=== PATIENT | male | born 1985 | race Caucasian/White ===

== ENCOUNTER 2017-03-24 08:57 | Emergency (ER) | payer BC ==
[2017-03-24] MEDS ORDERED: IBUPROFEN IV 600 MG in SODIUM CHLORIDE 0.9% 250 ML IV ONE (09:18)
[2017-03-24] MEDS ORDERED: ONDANSETRON 4 MG/2 ML VIAL IVP STA (09:18)
[2017-03-24] MEDS ORDERED: SODIUM CHLORIDE 0.9% 1,000 ML IV STA ×2 (09:18→11:43)
--- NOTE | 2017-03-24 09:20 | ED ---
General Adult HPI - General Chief complaint: Shortness of Breath Stated complaint: Flu Time Seen by Provider: 03/24/17 09:08 Source: patient, RN notes reviewed Mode of arrival: ambulatory Limitations: no limitations - History of Present Illness Initial comments: Patient 31-year-old male who presents emergency room today with chief complaint of increased cough congestion over the last month. He states his symptoms started a month ago was diagnosed with pneumonia by chest x-ray was on azithromycin that he finished just 2 days ago. States began feeling better over the weekend but over the last few days symptoms seem to have increased once again. He doesn't take chills, body aches admits to fever today. States he has not taken anything for it yet. Doesn't headache. Patient admits to feeling nauseated no vomiting. Patient denies any other complaints. He denies any past medical history. Patient denies any recent shortness of breath, chest pain, back pain, abdominal pain, vomiting, numbness or tingling, visual changes , or any other complaints. - Related Data Home Medications Medication Instructions Recorded Confirmed Dextroamphetamine/Amphetamine 30 mg PO BID 03/24/17 03/24/17 [Adderall] Allergies Allergy/AdvReac Type Severity Reaction Status Date / Time No Known Allergies Allergy Verified 03/24/17 09:22 Review of Systems ROS Statement: Those systems with pertinent positive or pertinent negative responses have been documented in the HPI. ROS Other: All systems not noted in ROS Statement are negative. Past Medical History Past Medical History: No Reported History History of Any Multi-Drug Resistant Organisms: None Reported Past Surgical History: No Surgical Hx Reported Past Psychological History: ADD/ADHD Smoking Status: Current every day smoker Past Alcohol Use History: None Reported Past Drug Use History: None Reported General Exam - General Exam Comments Initial Comments: General: The patient is awake and alert, in no distress, and does not appear acutely ill. Eye: Pupils are equal, round and reactive to light, extra-ocular movements are intact. No nystagmus. There is normal conjunctiva bilaterally. No signs of icterus. Ears, nose, mouth and throat: There are moist mucous membranes and no oral lesions. Neck: The neck is supple, there is no tenderness or JVD. Cardiovascular: Tachycardic. No murmur, rub or gallop is appreciated. Respiratory: Lungs are clear to auscultation, respirations are non-labored, breath sounds are equal. No wheezes, stridor, rales, or rhonchi. Musculoskeletal: Normal ROM, no tenderness. Strength 5/5. Sensation intact. Pulses equal bilaterally 2+. Neurological: A&O x 3. CN II-XII intact, There are no obvious motor or sensory deficits. Coordination appears grossly intact. Speech is normal. Skin: Skin is warm and dry and no rashes or lesions are noted. Psychiatric: Cooperative, appropriate mood & affect, normal judgment. Limitations: no limitations Course Vital Signs 03/24/17 03/24/17 03/24/17 08:58 10:16 11:07 Temperature 101.2 F H 100.1 F H 100.5 F H Pulse Rate 130 H 129 H Respiratory 16 18 16 Rate Blood Pressure 113/74 126/61 O2 Sat by Pulse 97 96 Oximetry 03/24/17 03/24/17 12:09 13:28 Temperature 99 F 98.9 F Pulse Rate 115 H 106 H Respiratory 18 16 Rate Blood Pressure 110/66 106/64 O2 Sat by Pulse 97 96 Oximetry Medical Decision Making - Medical Decision Making Patient reexamined at this time shows no signs of distress. Resting comfortable. Chest x-rays negative. Patient's last been reviewed. Negative influenza. Patient does admit that he was on antibiotics. Has a new antibiotic since been called to the pharmacy. Case was discussed by attending physician Dr. Davis. RESULTS were discussed with patient. At this time he feels being discharged home. His heart rate much improved after ibuprofen and IV fluids. He was given a dose of Levaquin here in emergency room. States he does not want be admitted will be discharged home advised to obtain his prescription that was prescribed colchicine. Advised to return here to emergency room if symptoms increase worsen. - Lab Data Result diagrams: 03/24/17 09:53 03/24/17 09:53 Lab Results 03/24/17 03/24/17 03/24/17 Range/Units 09:34 09:53 09:53 WBC 5.4 (3.8-10.6) k/uL RBC 4.46 (4.30-5.90) m/uL Hgb 14.1 (13.0-17.5) gm/dL Hct 42.4 (39.0-53.0) % MCV 94.9 (80.0-100.0) fL MCH 31.5 (25.0-35.0) pg MCHC 33.2 (31.0-37.0) g/dL RDW 11.9 (11.5-15.5) % Plt Count 163 (150-450) k/uL Neutrophils % 77 % Lymphocytes % 10 % Monocytes % 11 % Eosinophils % 1 % Basophils % 0 % Neutrophils # 4.1 (1.3-7.7) k/uL Lymphocytes # 0.5 L (1.0-4.8) k/uL Monocytes # 0.6 (0-1.0) k/uL Eosinophils # 0.1 (0-0.7) k/uL Basophils # 0.0 (0-0.2) k/uL Sodium 139 (137-145) mmol/L Potassium 3.6 (3.5-5.1) mmol/L Chloride 102 (98-107) mmol/L Carbon Dioxide 29 (22-30) mmol/L Anion Gap 8 mmol/L BUN 15 (9-20) mg/dL Creatinine 0.90 (0.66-1.25) mg/dL Est GFR (MDRD) Af Amer >60 (>60 ml/min/1.73 sqM) Est GFR (MDRD) Non-Af >60 (>60 ml/min/1.73 sqM) Glucose 91 (74-99) mg/dL Plasma Lactic Acid Walter (0.7-2.0) mmol/L Calcium 8.7 (8.4-10.2) mg/dL Total Bilirubin 0.5 (0.2-1.3) mg/dL AST 26 (17-59) U/L ALT 25 (21-72) U/L Alkaline Phosphatase 55 (38-126) U/L Total Protein 6.3 (6.3-8.2) g/dL Albumin 3.8 (3.5-5.0) g/dL Influenza Type A RNA Not Detected (Not Detectd) Influenza Type B (PCR) Not Detected (Not Detectd) 03/24/17 Range/Units 09:53 WBC (3.8-10.6) k/uL RBC (4.30-5.90) m/uL Hgb (13.0-17.5) gm/dL Hct (39.0-53.0) % MCV (80.0-100.0) fL MCH (25.0-35.0) pg MCHC (31.0-37.0) g/dL RDW (11.5-15.5) % Plt Count (150-450) k/uL Neutrophils % % Lymphocytes % % Monocytes % % Eosinophils % % Basophils % % Neutrophils # (1.3-7.7) k/uL Lymphocytes # (1.0-4.8) k/uL Monocytes # (0-1.0) k/uL Eosinophils # (0-0.7) k/uL Basophils # (0-0.2) k/uL Sodium (137-145) mmol/L Potassium (3.5-5.1) mmol/L Chloride (98-107) mmol/L Carbon Dioxide (22-30) mmol/L Anion Gap mmol/L BUN (9-20) mg/dL Creatinine (0.66-1.25) mg/dL Est GFR (MDRD) Af Amer (>60 ml/min/1.73 sqM) Est GFR (MDRD) Non-Af (>60 ml/min/1.73 sqM) Glucose (74-99) mg/dL Plasma Lactic Acid Walter 0.8 (0.7-2.0) mmol/L Calcium (8.4-10.2) mg/dL Total Bilirubin (0.2-1.3) mg/dL AST (17-59) U/L ALT (21-72) U/L Alkaline Phosphatase (38-126) U/L Total Protein (6.3-8.2) g/dL Albumin (3.5-5.0) g/dL Influenza Type A RNA (Not Detectd) Influenza Type B (PCR) (Not Detectd) Disposition Clinical Impression: Acute bronchitis Disposition: HOME SELF-CARE Condition: Good Instructions: Acute Bronchitis (ED) Additional Instructions: Please use medication as discussed. Please follow-up with family doctor in the next 2 days of symptoms have not improved. Please return to emergency room if the symptoms increase or worsen or for any other concerns. Referrals: Ander Junior MD [Primary Care Provider] - 1-2 days Time of Disposition: 13:42
--- NOTE | 2017-03-24 10:08 | XR ---
EXAMINATION TYPE: XR chest 2V DATE OF EXAM: 03/24/2017 COMPARISON: None HISTORY: 31-year-old male with cough and congestion TECHNIQUE: AP and lateral views FINDINGS: The cardiomediastinal silhouette, aorta, and pulmonary vasculature are within normal limits. Lungs an d pleural spaces are clear. IMPRESSION: No acute cardiopulmonary process.
[2017-03-24 10:15] LABS: Basophils % (A) 0 %; Eosinophils # (A) 0.1 k/uL (0-0.7); Eosinophils % (A) 1 %; HCT 42.4 % (39.0-53.0); HGB 14.1 gm/dL (13.0-17.5); Lymphocytes # (A) 0.5 k/uL (1.0-4.8); Lymphocytes % (A) 10 %; MCH 31.5 pg (25.0-35.0); MCHC 33.2 g/dL (31.0-37.0); MCV 94.9 fL (80.0-100.0); Monocytes # (A) 0.6 k/uL (0-1.0); Monocytes % (A) 11 %; Neutrophils # (A) 4.1 k/uL (1.3-7.7); Neutrophils % (A) 77 %; Platelet Count 163 k/uL (150-450); RBC 4.46 m/uL (4.30-5.90); RDW 11.9 % (11.5-15.5); WBC 5.4 k/uL (3.8-10.6)
[2017-03-24 10:29] LABS: ALT 25 U/L (21-72); AST 26 U/L (17-59); Albumin 3.8 g/dL (3.5-5.0); Alkaline Phosphatase 55 U/L (38-126); Anion Gap 8 mmol/L; Blood Urea Nitrogen 15 mg/dL (9-20); Calcium 8.7 mg/dL (8.4-10.2); Carbon Dioxide 29 mmol/L (22-30); Chloride 102 mmol/L (98-107); Glucose 91 mg/dL (74-99); Potassium 3.6 mmol/L (3.5-5.1); Sodium 139 mmol/L (137-145); Total Bilirubin 0.5 mg/dL (0.2-1.3); Total Protein 6.3 g/dL (6.3-8.2)
[2017-03-24] MEDS ORDERED: LEVOFLOXACIN 500MG-D5W PMX 500 MG in DEXTROSE/WATER 1 100ML.BAG IVPB STA (11:43)
[2017-03-24 13:29] VITALS: BP 106/64; PULSE 106; RESP 16; TEMP 98.9
[2017-03-24] MEDS ORDERED: DEXAMETHASONE SOD PHOSPHATE 10 MG/ML 1 ML VIAL IV STA (13:41)
== END 2017-03-24 14:10 | disposition home or self-care (01) ==
LOC: SUPCPDRO 08:57 → EC 08:57
DX: J20.9 Acute bronchitis, unspecified (principal); F90.9 Attention-deficit hyperactivity disorder, unspecified type; F17.200 Nicotine dependence, unspecified, uncomplicated; Z79.899 Other long term (current) drug therapy
CPT/HCPCS: 99285; 96365 ×2; 96375 ×2; 36415; 80053; 83605; 85025; 87040; 87502; 71046; J1100; J2405; J1956; J1741

== ENCOUNTER 2017-12-01 12:01 | Emergency (ER) | payer BC ==
--- NOTE | 2017-12-01 12:45 | ED ---
Head Injury HPI - General Chief complaint: Head Injury Stated complaint: Head injury Time Seen by Provider: 12/01/17 12:15 Source: patient, RN notes reviewed Mode of arrival: ambulatory Limitations: no limitations - History of Present Illness Initial comments: This a 31-year-old male presents emergency Department chief complaint of headache, head injury. Patient states since Tuesday is changing a tire states that the bar slipped striking him in the left mastoid region. Patient states that continuation of a headache slightly feeling dizzy. Patient was seen by urgent care/PCP and sent emergency department. Patient states he has no focal weakness no difficult in thought process. Denies any nausea vomiting. Patient said no blurred vision. - Related Data Home Medications Medication Instructions Recorded Confirmed Dextroamphetamine/Amphetamine 30 mg PO BID 03/24/17 12/01/17 [Adderall] Acetaminophen [Tylenol] 500 mg PO Q4-6H PRN 12/01/17 12/01/17 Allergies/Adverse reactions: Allergies Allergy/AdvReac Type Severity Reaction Status Date / Time No Known Allergies Allergy Verified 12/01/17 12:30 Review of Systems ROS Statement: Those systems with pertinent positive or pertinent negative responses have been documented in the HPI. ROS Other: All systems not noted in ROS Statement are negative. Past Medical History Past Medical History: No Reported History History of Any Multi-Drug Resistant Organisms: None Reported Past Surgical History: No Surgical Hx Reported Past Psychological History: ADD/ADHD Smoking Status: Current every day smoker Past Alcohol Use History: None Reported Past Drug Use History: None Reported General Exam Limitations: no limitations General appearance: alert, in no apparent distress Head exam: Present: atraumatic, normocephalic, normal inspection Eye exam: Present: normal appearance, PERRL, EOMI. Absent: scleral icterus, conjunctival injection, periorbital swelling ENT exam: Present: normal exam, normal oropharynx, mucous membranes moist, TM's normal bilaterally, normal external ear exam, other (Minimal mastoid tenderness on the left) Neck exam: Present: normal inspection, full ROM. Absent: tenderness, meningismus, lymphadenopathy Respiratory exam: Present: normal lung sounds bilaterally. Absent: respiratory distress, wheezes, rales, rhonchi, stridor Cardiovascular Exam: Present: regular rate, normal rhythm, normal heart sounds. Absent: systolic murmur, diastolic murmur, rubs, gallop, clicks Neurological exam: Present: alert, oriented X3, CN II-XII intact, reflexes normal, other (Finger to nose intact bilaterally without over shooting, normal Romberg, GCS of 15). Absent: motor sensory deficit Skin exam: Present: warm, dry, intact, normal color. Absent: rash Medical Decision Making - Medical Decision Making 31-year-old male presents emergency Department for a CAT scan after head injury. Head injury happened 4 days ago. Patient has continuation headache CT was obtained did not reveal any skull fracture, no intracranial hemorrhage. Patient does have concussion symptoms. Patient advised that he needs to follow up for repeat check and to be cleared for physical activity and work. Disposition Clinical Impression: Concussion Disposition: HOME SELF-CARE Condition: Stable Instructions: Concussion (ED) Additional Instructions: Please return to the Emergency Department if symptoms worsen or any other concerns. Is patient prescribed a controlled substance at d/c from ED?: No Referrals: Ander Junior MD [Primary Care Provider] - 1-2 days Time of Disposition: 13:10
--- NOTE | 2017-12-01 12:45 | CT ---
EXAMINATION TYPE: CT brain wo con DATE OF EXAM: 12/01/2017 COMPARISON: NONE HISTORY: pt hit head with metal pipe, unsure of LOC. CT DLP: 994.10 mGycm. Automated Exposure Control for Dose Reduction was Utilized. TECHNIQUE: CT scan of the head is performed without contrast. FINDINGS: There is no acute intracranial hemorrhage, mass effect, or midline shift identified. No suspicious extra-axial fluid collection. The ventricles and sulci are within normal limits in size. The globes are intact and the visualized sinuses are clear. There are numerous calcified fragments wi thin the scalp predominating in the frontal region. IMPRESSION: No acute intracranial hemorrhage, mass effect, or midline shift is seen.
[2017-12-01 13:17] VITALS: BP 133/85; PULSE 98; RESP 16; TEMP 97.9
== END 2017-12-01 13:50 | disposition home or self-care (01) ==
LOC: EC 12:01
DX: S06.0X0A Concussion without loss of consciousness, initial encounter (principal); F90.9 Attention-deficit hyperactivity disorder, unspecified type; R40.2412 Glasgow coma scale score 13-15, at arrival to emergency department; F17.200 Nicotine dependence, unspecified, uncomplicated; Z79.899 Other long term (current) drug therapy; W22.8XXA Striking against or struck by other objects, initial encounter; Y93.89 Activity, other specified
CPT/HCPCS: 70450; 99283

== ENCOUNTER 2019-07-17 01:53 | Emergency (ER) | payer BC ==
[2019-07-17 02:05] VITALS: BP 132/89; PULSE 110; RESP 20; TEMP 98.4
--- NOTE | 2019-07-17 02:56 | XR ---
EXAMINATION TYPE: XR ankle complete RT DATE OF EXAM: 07/17/2019 COMPARISON: NONE HISTORY: Pain. TECHNIQUE: 3 views FINDINGS: There is nondisplaced fracture of the body of the calcaneus. Subtalar joint is anatomic. An kle mortise is anatomic. Talonavicular joint appears normal. IMPRESSION: Nondisplaced calcaneus fracture.
--- NOTE | 2019-07-17 03:18 | ED ---
Lower Extremity Injury HPI - General Chief Complaint: Extremity Injury, Lower Stated Complaint: Rt Ankle Injury Time Seen by Provider: 07/17/19 02:14 Source: patient, family, RN notes reviewed, old records reviewed Mode of arrival: wheelchair Limitations: no limitations - History of Present Illness Initial Comments: This is a 33-year-old male presents today for evaluation of significant lower extremity pain patient has severe right ankle pain. Jumped off a deck today causing ankle pain does admit intoxication no other injury. Able to bear weight denying any pain hip pain or back pain. MD Complaint: ankle injury (Right) -: hour(s) Injury: Ankle: Right Type of Injury: blunt Place: home, street/outdoors Severity: severe Severity scale (1-10): 10 Improves With: nothing Worsens With: weight bearing Context: direct blow Associated Symptoms: swelling, unable to bear weight, able to partially bear weight - Related Data Home Medications Medication Instructions Recorded Confirmed Dextroamphetamine/Amphetamine 30 mg PO BID 03/24/17 12/29/17 [Adderall] Allergies Allergy/AdvReac Type Severity Reaction Status Date / Time No Known Allergies Allergy Verified 07/17/19 02:05 Review of Systems ROS Statement: Those systems with pertinent positive or pertinent negative responses have been documented in the HPI. ROS Other: All systems not noted in ROS Statement are negative. Past Medical History Past Medical History: No Reported History Additional Past Medical History / Comment(s): 12-29-17 pt wants both flu and pne vaccine this admit. concussion few weeks ago( while changing a tire- accidently was hit in head with a metal pipe) ,add/adhd,scoliosis."heartburn", shingles 2007 History of Any Multi-Drug Resistant Organisms: None Reported Past Surgical History: Hernia Repair Additional Past Surgical History / Comment(s): rt inguinal hernia repair, rt hand repair after a drill went thru it. Past Anesthesia/Blood Transfusion Reactions: Motion Sickness Additional Past Anesthesia/Blood Transfusion Reaction / Comment(s): past "sea sickness" Past Psychological History: ADD/ADHD Smoking Status: Current every day smoker Past Alcohol Use History: None Reported, Heavy Past Drug Use History: None Reported - Past Family History Father Family Medical History: COPD, Coronary Artery Disease (CAD), Diabetes Mellitus Mother Family Medical History: Hypertension, Sleep Apnea/CPAP/BIPAP Additional Family Medical History / Comment(s): osteoporosis, fatty liver General Exam Limitations: no limitations General appearance: alert, in no apparent distress Head exam: Present: atraumatic, normocephalic, normal inspection Eye exam: Present: normal appearance, PERRL, EOMI. Absent: scleral icterus, conjunctival injection, periorbital swelling ENT exam: Present: normal exam, mucous membranes moist Neck exam: Present: normal inspection. Absent: tenderness, meningismus, lymphadenopathy Respiratory exam: Present: normal lung sounds bilaterally. Absent: respiratory distress, wheezes, rales, rhonchi, stridor Cardiovascular Exam: Present: normal rhythm, tachycardia, normal heart sounds. Absent: systolic murmur, diastolic murmur, rubs, gallop, clicks GI/Abdominal exam: Present: soft, normal bowel sounds. Absent: distended, tenderness, guarding, rebound, rigid Extremities exam: Present: normal inspection, full ROM, tenderness (6 significant right lower extremity tenderness to palpation no knee pain no hip pain), normal capillary refill. Absent: pedal edema, joint swelling, calf tenderness Back exam: Present: normal inspection Neurological exam: Present: alert, oriented X3, CN II-XII intact Psychiatric exam: Present: normal affect, normal mood Skin exam: Present: warm, dry, intact, normal color. Absent: rash Course Vital Signs 07/17/19 02:00 Temperature 98.4 F Pulse Rate 110 H Respiratory 20 Rate Blood Pressure 132/89 O2 Sat by Pulse 97 Oximetry - Reevaluation(s) Reevaluation #1: 07/17/19 03:16 Medical records reviewed Reevaluation #2: 07/17/19 03:16 Pain is improved Procedures - Orthopedic Splinting/Casting Injury #1 Side: right Lower Extremity Injury Location: ankle Lower Extremity Immobilizer: posterior splint, stirrup splint Medical Decision Making - Medical Decision Making 33 male status post fall, patient's fall was jumping off of a doctor on the ground landing on right foot right leg does have severe right foot and ankle pain. Patient has fractured calcaneus ankle splinted patient can be discharged home encouraged no weightbearing - Radiology Data Radiology results: report reviewed (X-ray right ankle shows nondisplaced calcaneus fracture), image reviewed Disposition Clinical Impression: Right calcaneal fracture, Fall Disposition: HOME SELF-CARE Condition: Good Instructions (If sedation given, give patient instructions): Calcaneal Fracture (ED) Is patient prescribed a controlled substance at d/c from ED?: No Referrals: Barry Mejias MD [Medical Doctor] - 1-2 days
== END 2019-07-17 03:33 | disposition home or self-care (01) ==
LOC: EC 01:53
DX: S92.014A Nondisplaced fracture of body of right calcaneus, initial encounter for closed fracture (principal); R00.0 Tachycardia, unspecified; F90.9 Attention-deficit hyperactivity disorder, unspecified type; F17.200 Nicotine dependence, unspecified, uncomplicated; Z79.899 Other long term (current) drug therapy; W13.8XXA Fall from, out of or through other building or structure, initial encounter; Y93.39 Activity, other involving climbing, rappelling and jumping off; Y92.009 Unspecified place in unspecified non-institutional (private) residence as the place of occurrence of the external cause
CPT/HCPCS: 29515; 99284

== ENCOUNTER → 2019-07-19 | Outpatient (CLI) | payer OTHER ==
--- NOTE | 2019-07-19 10:56 | CT ---
EXAMINATION TYPE: CT ankle RT wo con DATE OF EXAM: 07/19/2019 COMPARISON: Radiograph 07/17/2019 HISTORY: 33-year-old male right foot pain, calcaneus fracture TECHNIQUE: Contiguous axial scanning of the right ankle without IV contrast. Coronal and sagittal rec onstructions performed. 3-D reconstructions generated on a dedicated independent workstation. CT DLP: 204.4 mGycm Automated exposure control for dose reduction was used. FINDINGS: Marked lateral sided soft tissue swelling. Tiny type I accessory navicular. Aside from the known calcaneal fractures, no additional fractures identified. The calcaneal fracture is comminuted extending from the anterior aspect to the posterior aspect. Ther e is fracture extension into the region of the sinus tarsi, posterior subtalar joint, anterior subtal ar joint, and a vertical fracture oriented from front to back at the lateral margin of the middle sub talar joint. No significant incongruence along the articular surfaces. Laterally at the level of the calcaneal body, there is impaction of the cortex by up to 7 mm. IMPRESSION: 1. COMMINUTED FRACTURE EXTENDING THROUGHOUT THE CALCANEUS. LATERALLY AT THE CALCANEAL BODY, THERE IS IMPACTION OF THE CORTEX BY UP TO 7 MM. 2. INTRA-ARTICULAR EXTENSION OF FRACTURES INTO THE ANTERIOR AND POSTERIOR SUBTALAR JOINTS WITHOUT ANY SIGNIFICANT ARTICULAR SURFACE INCONGRUITY. FRACTURE ALSO EXTENDS ALONG THE LATERAL MARGIN OF THE MID DLE SUBTALAR JOINT IN THE SAGITTAL PLANE.
== END | disposition home or self-care (01) ==
LOC: RADCTMAIN 10:02
PROVIDERS: ATTEND Orthopaedic Surgery
DX: S92.061A Displaced intraarticular fracture of right calcaneus, initial encounter for closed fracture (principal)

== ENCOUNTER 2021-07-13 17:19 | Inpatient (IN) | payer BC ==
[2021-07-13] MEDS ORDERED: SODIUM CHLORIDE 0.9% 1,000 ML IV SCH (18:15)
--- NOTE | 2021-07-13 18:29 | ED ---
General Adult HPI - General Chief complaint: Upper Respiratory Infection Stated complaint: Cough and dyspnea Time Seen by Provider: 07/13/21 18:09 Source: patient, RN notes reviewed Mode of arrival: ambulatory Limitations: no limitations - History of Present Illness Initial comments: Patient is a pleasant 35-year-old male presenting to the emergency Department with cough. Onset of symptoms was around a month ago. Patient does feel a little bit short of breath. Patient does have a large amount of yellow sputum. Patient did have a course of azithromycin without much improvement of symptoms. Patient had some loose stools from the azithromycin however that resolved. Patient did have some hematuria and passed the kidney stone last week. Patient is no longer having hematuria. No nasal congestion. No fevers. - Related Data Home Medications Medication Instructions Recorded Confirmed Dextroamphetamine/Amphetamine 30 mg PO BID 03/24/17 12/29/17 [Adderall] Allergies Allergy/AdvReac Type Severity Reaction Status Date / Time No Known Allergies Allergy Verified 07/13/21 17:57 Review of Systems ROS Statement: Those systems with pertinent positive or pertinent negative responses have been documented in the HPI. ROS Other: All systems not noted in ROS Statement are negative. Constitutional: Denies: fever, chills Eyes: Denies: eye pain ENT: Denies: ear pain Respiratory: Reports: as per HPI, cough, dyspnea Cardiovascular: Denies: chest pain Endocrine: Denies: fatigue Gastrointestinal: Reports: as per HPI. Denies: abdominal pain Genitourinary: Reports: as per HPI Musculoskeletal: Denies: back pain Skin: Denies: rash Neurological: Denies: weakness Past Medical History Past Medical History: No Reported History Additional Past Medical History / Comment(s): 12-29-17 pt wants both flu and pne vaccine this admit. concussion few weeks ago( while changing a tire- accidently was hit in head with a metal pipe) ,add/adhd,scoliosis."heartburn", shingles 2007 History of Any Multi-Drug Resistant Organisms: None Reported Past Surgical History: Hernia Repair Additional Past Surgical History / Comment(s): rt inguinal hernia repair, rt hand repair after a drill went thru it. Past Anesthesia/Blood Transfusion Reactions: Motion Sickness Additional Past Anesthesia/Blood Transfusion Reaction / Comment(s): past "sea sickness" Past Psychological History: ADD/ADHD Smoking Status: Never smoker Past Alcohol Use History: None Reported Past Drug Use History: None Reported - Past Family History Father Family Medical History: COPD, Coronary Artery Disease (CAD), Diabetes Mellitus Mother Family Medical History: Hypertension, Sleep Apnea/CPAP/BIPAP Additional Family Medical History / Comment(s): osteoporosis, fatty liver General Exam Limitations: no limitations General appearance: alert, in no apparent distress Head exam: Present: normocephalic Eye exam: Present: normal appearance Neck exam: Present: normal inspection Respiratory exam: Present: rhonchi Cardiovascular Exam: Present: tachycardia GI/Abdominal exam: Present: soft. Absent: tenderness Extremities exam: Present: normal inspection. Absent: pedal edema, calf tenderness Neurological exam: Present: alert Psychiatric exam: Present: normal affect, normal mood Skin exam: Present: normal color Course Vital Signs 07/13/21 17:53 Pulse Rate 132 H Respiratory 20 Rate Blood Pressure 117/85 O2 Sat by Pulse 97 Oximetry EKG Findings - EKG Comments: EKG Findings:: Sinus tachycardia 127. MN 153. QRS 92. QT 304. QTC 379. Normal axis. Normal QRS. Nonspecific ST-T. Medical Decision Making - Medical Decision Making Patient reevaluated and updated. Case discussed with Dr. Crump, who will admit covering Dr. Corado. He agrees with [facility]. - Lab Data Result diagrams: 07/13/21 18:28 07/13/21 18:28 Lab Results 07/13/21 07/13/21 07/13/21 Range/Units 18:28 18:28 18:28 WBC 8.1 (3.8-10.6) k/uL RBC 4.37 (4.30-5.90) m/uL Hgb 14.2 (13.0-17.5) gm/dL Hct 42.3 (39.0-53.0) % MCV 96.7 (80.0-100.0) fL MCH 32.5 (25.0-35.0) pg MCHC 33.7 (31.0-37.0) g/dL RDW 12.1 (11.5-15.5) % Plt Count 405 (150-450) k/uL MPV 8.0 Neutrophils % 65 % Lymphocytes % 25 % Monocytes % 6 % Eosinophils % 2 % Basophils % 1 % Neutrophils # 5.2 (1.3-7.7) k/uL Lymphocytes # 2.0 (1.0-4.8) k/uL Monocytes # 0.5 (0-1.0) k/uL Eosinophils # 0.2 (0-0.7) k/uL Basophils # 0.1 (0-0.2) k/uL PT 11.8 (9.0-12.0) sec INR 1.1 (<1.2) APTT 26.4 (22.0-30.0) sec Sodium (137-145) mmol/L Potassium (3.5-5.1) mmol/L Chloride (98-107) mmol/L Carbon Dioxide (22-30) mmol/L Anion Gap mmol/L BUN (9-20) mg/dL Creatinine (0.66-1.25) mg/dL Est GFR (CKD-EPI)AfAm (>60 ml/min/1.73 sqM) Est GFR (CKD-EPI)NonAf (>60 ml/min/1.73 sqM) Glucose (74-99) mg/dL Plasma Lactic Acid Walter (0.7-2.0) mmol/L Calcium (8.4-10.2) mg/dL Total Bilirubin (0.2-1.3) mg/dL AST (17-59) U/L ALT (4-49) U/L Alkaline Phosphatase (38-126) U/L Total Protein (6.3-8.2) g/dL Albumin (3.5-5.0) g/dL Urine Color Yellow Urine Appearance Clear (Clear) Urine pH 5.5 (5.0-8.0) Ur Specific [place] 1.031 (1.001-1.035) Urine Protein 1+ H (Negative) Urine Glucose (UA) Negative (Negative) Urine Ketones 2+ H (Negative) Urine Blood Negative (Negative) Urine Nitrite Negative (Negative) Urine Bilirubin Negative (Negative) Urine Urobilinogen <2.0 (<2.0) mg/dL Ur Leukocyte Esterase Trace H (Negative) Urine RBC 6 H (0-5) /hpf Urine WBC 4 (0-5) /hpf Ur Squamous Epith Cells <1 (0-4) /hpf Hyaline Casts 6 H (0-2) /lpf Urine Mucus Many H (None) /hpf Coronavirus (PCR) (Not Detectd) Influenza Type A RNA (Not Detectd) Influenza Type B (PCR) (Not Detectd) 07/13/21 07/13/21 07/13/21 Range/Units 18:28 18:28 18:28 WBC (3.8-10.6) k/uL RBC (4.30-5.90) m/uL Hgb (13.0-17.5) gm/dL Hct (39.0-53.0) % MCV (80.0-100.0) fL MCH (25.0-35.0) pg MCHC (31.0-37.0) g/dL RDW (11.5-15.5) % Plt Count (150-450) k/uL MPV Neutrophils % % Lymphocytes % % Monocytes % % Eosinophils % % Basophils % % Neutrophils # (1.3-7.7) k/uL Lymphocytes # (1.0-4.8) k/uL Monocytes # (0-1.0) k/uL Eosinophils # (0-0.7) k/uL Basophils # (0-0.2) k/uL PT (9.0-12.0) sec INR (<1.2) APTT (22.0-30.0) sec Sodium 136 L (137-145) mmol/L Potassium 4.0 (3.5-5.1) mmol/L Chloride 103 (98-107) mmol/L Carbon Dioxide 24 (22-30) mmol/L Anion Gap 9 mmol/L BUN 13 (9-20) mg/dL Creatinine 0.91 (0.66-1.25) mg/dL Est GFR (CKD-EPI)AfAm >90 (>60 ml/min/1.73 sqM) Est GFR (CKD-EPI)NonAf >90 (>60 ml/min/1.73 sqM) Glucose 91 (74-99) mg/dL Plasma Lactic Acid Walter 1.5 (0.7-2.0) mmol/L Calcium 8.5 (8.4-10.2) mg/dL Total Bilirubin 0.8 (0.2-1.3) mg/dL AST 19 (17-59) U/L ALT 14 (4-49) U/L Alkaline Phosphatase 76 (38-126) U/L Total Protein 6.5 (6.3-8.2) g/dL Albumin 3.7 (3.5-5.0) g/dL Urine Color Urine Appearance (Clear) Urine pH (5.0-8.0) Ur Specific [place] (1.001-1.035) Urine Protein (Negative) Urine Glucose (UA) (Negative) Urine Ketones (Negative) Urine Blood (Negative) Urine Nitrite (Negative) Urine Bilirubin (Negative) Urine Urobilinogen (<2.0) mg/dL Ur Leukocyte Esterase (Negative) Urine RBC (0-5) /hpf Urine WBC (0-5) /hpf Ur Squamous Epith Cells (0-4) /hpf Hyaline Casts (0-2) /lpf Urine Mucus (None) /hpf Coronavirus (PCR) (Not Detectd) Influenza Type A RNA Not Detected (Not Detectd) Influenza Type B (PCR) Not Detected (Not Detectd) 07/13/21 Range/Units 18:28 WBC (3.8-10.6) k/uL RBC (4.30-5.90) m/uL Hgb (13.0-17.5) gm/dL Hct (39.0-53.0) % MCV (80.0-100.0) fL MCH (25.0-35.0) pg MCHC (31.0-37.0) g/dL RDW (11.5-15.5) % Plt Count (150-450) k/uL MPV Neutrophils % % Lymphocytes % % Monocytes % % Eosinophils % % Basophils % % Neutrophils # (1.3-7.7) k/uL Lymphocytes # (1.0-4.8) k/uL Monocytes # (0-1.0) k/uL Eosinophils # (0-0.7) k/uL Basophils # (0-0.2) k/uL PT (9.0-12.0) sec INR (<1.2) APTT (22.0-30.0) sec Sodium (137-145) mmol/L Potassium (3.5-5.1) mmol/L Chloride (98-107) mmol/L Carbon Dioxide (22-30) mmol/L Anion Gap mmol/L BUN (9-20) mg/dL Creatinine (0.66-1.25) mg/dL Est GFR (CKD-EPI)AfAm (>60 ml/min/1.73 sqM) Est GFR (CKD-EPI)NonAf (>60 ml/min/1.73 sqM) Glucose (74-99) mg/dL Plasma Lactic Acid Walter (0.7-2.0) mmol/L Calcium (8.4-10.2) mg/dL Total Bilirubin (0.2-1.3) mg/dL AST (17-59) U/L ALT (4-49) U/L Alkaline Phosphatase (38-126) U/L Total Protein (6.3-8.2) g/dL Albumin (3.5-5.0) g/dL Urine Color Urine Appearance (Clear) Urine pH (5.0-8.0) Ur Specific [place] (1.001-1.035) Urine Protein (Negative) Urine Glucose (UA) (Negative) Urine Ketones (Negative) Urine Blood (Negative) Urine Nitrite (Negative) Urine Bilirubin (Negative) Urine Urobilinogen (<2.0) mg/dL Ur Leukocyte Esterase (Negative) Urine RBC (0-5) /hpf Urine WBC (0-5) /hpf Ur Squamous Epith Cells (0-4) /hpf Hyaline Casts (0-2) /lpf Urine Mucus (None) /hpf Coronavirus (PCR) Not Detected (Not Detectd) Influenza Type A RNA (Not Detectd) Influenza Type B (PCR) (Not Detectd) - Radiology Data Radiology results: image reviewed (Chest x-ray shows bilateral infiltrates. Radiologist has concerns for edema.) Disposition Clinical Impression: Pneumonia, Tachycardia Disposition: ADMITTED IP TO THIS HOSP Is patient prescribed a controlled substance at d/c from ED?: No Referrals: Saskia Singh MD [Primary Care Provider] - 1-2 days Time of Disposition: 19:41
[2021-07-13 18:42] LABS: Basophils # (A) 0.1 k/uL (0-0.2); Basophils % (A) 1 %; Eosinophils # (A) 0.2 k/uL (0-0.7); Eosinophils % (A) 2 %; HCT 42.3 % (39.0-53.0); HGB 14.2 gm/dL (13.0-17.5); Lymphocytes % (A) 25 %; MCH 32.5 pg (25.0-35.0); MCHC 33.7 g/dL (31.0-37.0); MCV 96.7 fL (80.0-100.0); Monocytes # (A) 0.5 k/uL (0-1.0); Monocytes % (A) 6 %; Neutrophils # (A) 5.2 k/uL (1.3-7.7); Neutrophils % (A) 65 %; Platelet Count 405 k/uL (150-450); RBC 4.37 m/uL (4.30-5.90); RDW 12.1 % (11.5-15.5); WBC 8.1 k/uL (3.8-10.6)
[2021-07-13 18:50] LABS: INR 1.1 (<1.2); Partial Thromboplastin Time 26.4 sec (22.0-30.0); Prothrombin Time 11.8 sec (9.0-12.0)
[2021-07-13 18:51] LABS: ALT 14 U/L (4-49); AST 19 U/L (17-59); African American GFR (CKD) >90 (>60 ml/min/1.73 sqM); Albumin 3.7 g/dL (3.5-5.0); Alkaline Phosphatase 76 U/L (38-126); Anion Gap 9 mmol/L; Appearance,Urine Clear (Clear); Bilirubin,Urine Negative (Negative); Blood Urea Nitrogen 13 mg/dL (9-20); Blood,Urine Negative (Negative); Calcium 8.5 mg/dL (8.4-10.2); Carbon Dioxide 24 mmol/L (22-30); Chloride 103 mmol/L (98-107); Color,Urine Yellow; Glucose 91 mg/dL (74-99); Glucose,Urine (UA) Negative (Negative); Hyaline Casts,Urine 6 /lpf (0-2); Ketones,Urine 2+ (Negative); Leukocyte Esterase,Urine Trace (Negative); Mucus,Urine Many /hpf; Nitrite,Urine Negative (Negative); Non-African American GFR(CKD) >90 (>60 ml/min/1.73 sqM); PH, Urine 5.5 (5.0-8.0); Protein,Urine 1+ (Negative); RBC,Urine 6 /hpf (0-5); Sodium 136 mmol/L (137-145); Specific Gravity,Urine 1.031 (1.001-1.035); Squamous Epithelial Cell,Urine <1 /hpf (0-4); Total Bilirubin 0.8 mg/dL (0.2-1.3); Total Protein 6.5 g/dL (6.3-8.2); Urobilinogen,Urine <2.0 mg/dL (<2.0); WBC,Urine 4 /hpf (0-5)
--- NOTE | 2021-07-13 19:17 | XR ---
EXAMINATION TYPE: XR chest 2V DATE OF EXAM: 07/13/2021 COMPARISON: 12/29/2017 HISTORY: Chest pain TECHNIQUE: 2 views FINDINGS: There is bilateral pulmonary airspace edema. Heart is enlarged. No pleural effusion. Bony t horax is intact. IMPRESSION: There is pulmonary edema which is new compared to old exam. This could be developing RDS.
[2021-07-13] MEDS ORDERED: IPRATROPIUM-ALBUTEROL 3 ML NEB INHALATION PRN (19:43)
[2021-07-13] MEDS ORDERED: PNEUMONIA PROTOCOL UTILIZED 1 EACH MISC PO PRN (19:43)
[2021-07-13] MEDS ORDERED: LEVOFLOXACIN 750MG-D5W PMX 750 MG in DEXTROSE/WATER 1 150ML.BAG IVPB STA (19:43)
[2021-07-13] MEDS ORDERED: FUROSEMIDE 10 MG/ML 4 ML VIAL IV STA (19:55)
[2021-07-13 21:23] LABS: Amphetamine Screen,Urine Detected (NotDetected); Barbiturate Screen,Urine Not Detected (NotDetected); Benzodiazepines Screen,Urine Not Detected (NotDetected); Cocaine Screen,Urine Not Detected (NotDetected); Methadone Screen, Urine Not Detected (NotDetected); Opiate Screen,Urine Not Detected (NotDetected); Oxycodone Screen, Urine Not Detected (NotDetected); Phencyclidine Screen,Urine Not Detected (NotDetected); Tricyclic Antidepressant,Urine Not Detected (NotDetected); Urn Cannabinoid Scrn Not Detected (NotDetected)
[2021-07-13] MEDS: IPRATROPIUM-ALBUTEROL 3 ML NEB INHALATION SCH (22:32)
--- NOTE | 2021-07-13 22:42 | P.HPIM ---
History of Present Illness H&P Date: 07/13/21 Chief Complaint: Dyspnea 35-year-old man with medical history of ADHD presented for dyspnea. Patient says that starting 3 weeks ago he started to develop dyspnea on exertion. He went to his primary care provider who prescribed him azithromycin. Patient says he started taking azithromycin for couple days, but did not have any improvements or return to his primary care provider who then prescribed albuterol when necessary. Unfortunately, he did not have any improvement with this medication either. Shortly thereafter, he developed hematuria which prompted her return to his primary care provider. Patient ultimately ended up passing a kidney stone. His primary care provider replaced him on azithromycin, however, he still did not improve. He now presents to the emergency room complaining of ongoing dyspnea on exertion as well as at rest and overall feeling of malaise. He denies fevers, chills, nausea, vomiting, chest pain, palpitations, syncopal, presyncope, cough, abdominal pain, constipation, diarrhea, dysuria, dyschezia, number/weakness of extremities. In the emergency room, patient was afebrile, 124/68, 98% on room air, heart rate was elevated at 132 in sinus rhythm. CBC, chemistries, LFTs are unremarkable. BNP was elevated at 2360. UA was significant for 1+ protein, 2+ glucose, trace leukocyte esterase, 6 red blood cells, 4 white blood cells, 6 hyaline casts. Urine tox screen was negative except for amphetamine, which she is prescribed fo r ADHD. Covid, influenza A/B were all negative. EKG shows sinus tachycardia without ischemic changes. Chest x-ray demonstrates pulmonary edema. All Systems reviewed and pertinent positives and negatives noted in HPI, all other symptoms are negative Gen: awake, alert HEENT: normocephalic, atraumatic, good hearing acuity, moist mucous membranes Resp: good air exchange, breathing comfortably with no accessory muscle use, clear to auscultation bilaterally CVS: good distal perfusion x 4, regular rhythm, tachycardic, no murmurs GI: soft, NTTP, ND : no SPT, no CVAT, griffith catheter not present MSK: no pitting edema, no clubbing Neuro: non-focal, moving all extremities Psych: cooperative, euthymic mood Labs and imaging reviewed as above Assessment/plan: Acute congestive heart failure, unknown ejection fraction Acute hypoxemic respiratory failure -Admit to inpatient, telemetry -Cardiology consult -Echocardiogram -Lasix 40 mg IV daily -Strict ins and outs, daily weights -Patient is prophylactically on Levaquin ADHD -Hold patient's home medication Patient is full code DVT prophylaxis with Lovenox daily Past Medical History Past Medical History: No Reported History Additional Past Medical History / Comment(s): 12-29-17 pt wants both flu and pne vaccine this admit. concussion few weeks ago( while changing a tire-a ccidently was hit in head with a metal pipe) ,add/adhd,scoliosis."heartburn", shingles 2007 History of Any Multi-Drug Resistant Organisms: None Reported Past Surgical History: Hernia Repair Additional Past Surgical History / Comment(s): rt inguinal hernia repair, rt hand repair after a drill went thru it. Past Anesthesia/Blood Transfusion Reactions: Motion Sickness Additional Past Anesthesia/Blood Transfusion Reaction / Comment(s): past "sea sickness" Past Psychological History: ADD/ADHD Smoking Status: Former smoker Past Alcohol Use History: None Reported Past Drug Use History: None Reported Additional Drug Use History / Comment(s): occ use - Past Family History Father Family Medical History: COPD, Coronary Artery Disease (CAD), Diabetes Mellitus Mother Family Medical History: Hypertension, Sleep Apnea/CPAP/BIPAP Additional Family Medical History / Comment(s): osteoporosis, fatty liver Medications and Allergies Home Medications Medication Instructions Recorded Confirmed Type Dextroamphetamine/Amphetamine 30 mg PO BID 03/24/17 07/13/21 History [Adderall] Albuterol Sulfate [Albuterol 2 puff PO RT-Q6H PRN 07/13/21 07/13/21 History Sulfate Hfa] Allergies Allergy/AdvReac Type Severity Reaction Status Date / Time No Known Allergies Allergy Verified 07/13/21 19:51 Physical Exam Osteopathic Statement: *. No significant issues noted on an osteopathic structural exam other than those noted in the History and Physical/Consult. Vitals: Vital Signs Temp Pulse Pulse Resp BP BP Pulse Ox 07/13/21 22:00 97.7 F 129 H 14 108/77 98 07/13/21 21:06 125 H 07/13/21 21:01 133 H 07/13/21 20:33 132 H 22 124/68 98 07/13/21 20:00 129 H 07/13/21 17:53 132 H 20 117/85 97 Intake and Output 07/13/21 07/13/21 07/13/21 06:59 14:59 22:59 Other: Voiding Method Toilet Urinal Weight 75.75 kg Results CBC & Chem 7: 07/13/21 18:28 07/13/21 18:28 Labs: Abnormal Lab Results - Last 24 Hours (Table) 07/13/21 07/13/21 07/13/21 Range/Units 18:28 18:28 20:56 Sodium 136 L (137-145) mmol/L Urine Protein 1+ H (Negative) Urine Ketones 2+ H (Negative) Ur Leukocyte Esterase Trace H (Negative) Urine RBC 6 H (0-5) /hpf Hyaline Casts 6 H (0-2) /lpf Urine Mucus Many H (None) /hpf Ur Amphetamines Screen Detected H (NotDetected) Thrombosis Risk Factor Assmnt - Choose All That Apply Each Factor Represents 1 point: Obesity (BMI >25), Serious lung disease incl. pneumonia (< 1month) Thrombosis Risk Factor Assessment Total Risk Factor Score: 2 Thrombosis Risk Factor Assessment Level: Low Risk
[2021-07-14] MEDS: ENOXAPARIN 40 MG/0.4 ML SYRINGE SQ SCH (08:17)
[2021-07-14] MEDS: FUROSEMIDE 10 MG/ML 4 ML VIAL IV SCH (08:17)
--- NOTE | 2021-07-14 08:17 | XR ---
EXAMINATION TYPE: XR chest 2V DATE OF EXAM: 07/14/2021 COMPARISON: Chest x-ray dated 07/13/2021 HISTORY: Pneumonia TECHNIQUE: Frontal and lateral views of the chest are obtained. FINDINGS: Bilateral airspace disease is present predominantly in a central distribution. No evident pneumothorax or sizable effusion. Heart is upper limit of normal. There are overlying leads. There is a spinal curvature. IMPRESSION: Correlate for congestive heart failure and pulmonary edema, pneumonia not excluded.
[2021-07-14] MEDS: IPRATROPIUM-ALBUTEROL 3 ML NEB INHALATION SCH ×4 (08:50→21:13)
[2021-07-14 09:57] LABS: Basophils # (A) 0.1 k/uL (0-0.2); Basophils % (A) 1 %; Eosinophils # (A) 0.3 k/uL (0-0.7); Eosinophils % (A) 4 %; HCT 46.4 % (39.0-53.0); HGB 15.1 gm/dL (13.0-17.5); Lymphocytes # (A) 1.7 k/uL (1.0-4.8); Lymphocytes % (A) 28 %; MCH 31.8 pg (25.0-35.0); MCHC 32.5 g/dL (31.0-37.0); MCV 97.9 fL (80.0-100.0); Mean Platelet Volume 8.9; Monocytes # (A) 0.4 k/uL (0-1.0); Monocytes % (A) 7 %; Neutrophils # (A) 3.8 k/uL (1.3-7.7); Neutrophils % (A) 60 %; Platelet Count 391 k/uL (150-450); RBC 4.74 m/uL (4.30-5.90); RDW 11.5 % (11.5-15.5); WBC 6.3 k/uL (3.8-10.6)
[2021-07-14 10:14] LABS: African American GFR (CKD) >90 (>60 ml/min/1.73 sqM); Anion Gap 7 mmol/L; Blood Urea Nitrogen 13 mg/dL (9-20); Calcium 8.8 mg/dL (8.4-10.2); Carbon Dioxide 29 mmol/L (22-30); Chloride 102 mmol/L (98-107); Glucose 136 mg/dL (74-99); Magnesium 1.8 mg/dL (1.6-2.3); Non-African American GFR(CKD) >90 (>60 ml/min/1.73 sqM); Potassium 4.2 mmol/L (3.5-5.1); Sodium 138 mmol/L (137-145)
--- NOTE | 2021-07-14 11:40 | P.CRDCN ---
History of Present Illness History of present illness: HISTORY OF PRESENT ILLNESS: This is a 35-year-old male with a past medical history significant for ADD/ADHD and nicotine dependence. Patient does not follow with a paint dipper. We have been asked to see the patient in consultation for possible heart failure. Annabel summers examined at the bedside. Patient states he started coughing about a month ago. He states he was seen by his primary care physician and started on antibiotics and then albuterol. The patient states recently he has been feeling short of breath with minimal exertion and having some lower extremity edema. He denies any chest pain or pressure. Denies dizziness or lightheadedness. The patient is a current cigarette smoker and smokes approximately one pack per day. The patient also reports drinking 2-3 times a week and states he has 5-6 drinks on each occasion of captain and Coke. * EKG reveals sinus tachycardia with a heart rate of 127 * Chest xray correlate for congestive heart failure and pulmonary edema, pneumonia not excluded * Laboratory data: WBC 8.1. Hemoglobin 14.2. Platelet count 405. Sodium 136. Potassium 4.0. BUN 13. Creatinine 0.91. Lactic acid 1.5. Troponin 0.042. ProBNP 2360. * Current home cardiac medications include none * Most recent echocardiogram obtained in December 2017 revealed ejection fraction 55-60%, trace MR, trace TR * Patient underwent stress test in December 2017 which was inconclusive secondary to patient's inability to change target heart rate. REVIEW OF SYSTEMS: At the time of my exam: CONSTITUTIONAL: Denies fever or chills. HEENT: Denies blurred vision, vision changes, or eye pain. Denies hemoptysis CARDIOVASCULAR: Denies chest pain. Denies orthopnea. Denies PND. Denies palpitations RESPIRATORY: Denies shortness of breath. GASTROINTESTINAL: Denies abdominal pain. Denies nausea or vomiting. HEMATOLOGIC: Denies bleeding disorders. GENITOURINARY: Denies any blood in urine. SKIN: Denies pruitis. Denies rash. PHYSICAL EXAM: VITAL SIGNS: Reviewed. GENERAL: Well-developed in no acute distress. HEENT: Head is normocephalic. Pupils are equal, round. Sclerae anicteric. Mucous membranes of the mouth are moist. Neck supple. No JVD or thyromegaly LUNGS: Respirations even and unlabored. Lungs diminished to auscultation bilaterally. HEART: Regular rate and rhythm. S1 and S2 heard. ABDOMEN: Soft. Nondistended. Nontender. EXTREMITIES: Normal range of motion. No clubbing or cyanosis. Peripheral pulses intact. Trace lower extremity edema NEUROLOGIC: Awake and alert. Oriented x 3. ASSESSMENT: Acute heart failure, type unknown, etiology unclear Sinus tachycardia ADD/ADHD Nicotine dependence Frequent alcohol use PLAN: Obtain 2-D echo to assess cardiac structure and function Continue IV Lasix Daily weights Accurate I&O Begin carvedilol 1.563 mg twice a day. Increase if blood pressure able to tolerate Add spironolactone 12.5 mg daily Further recommendations pending patient's course Nurse practitioner note has been reviewed by physician. Signing provider agrees with the documented findings, assessment, and plan of care. Past Medical History Past Medical History: No Reported History Additional Past Medical History / Comment(s): 12-29-17 pt wants both flu and pne vaccine this admit. concussion few weeks ago( while changing a tire- accidently was hit in head with a metal pipe) ,add/adhd,scoliosis."heartburn", shingles 2007 History of Any Multi-Drug Resistant Organisms: None Reported Past Surgical History: Hernia Repair Additional Past Surgical History / Comment(s): rt inguinal hernia repair, rt hand repair after a drill went thru it. Past Anesthesia/Blood Transfusion Reactions: Motion Sickness Additional Past Anesthesia/Blood Transfusion Reaction / Comment(s): past "sea sickness" Past Psychological History: ADD/ADHD Smoking Status: Former smoker Past Alcohol Use History: None Reported Past Drug Use History: None Reported Additional Drug Use History / Comment(s): occ use - Past Family History Father Family Medical History: COPD, Coronary Artery Disease (CAD), Diabetes Mellitus Mother Family Medical History: Hypertension, Sleep Apnea/CPAP/BIPAP Additional Family Medical History / Comment(s): osteoporosis, fatty liver Medications and Allergies Home Medications Medication Instructions Recorded Confirmed Type Dextroamphetamine/Amphetamine 30 mg PO BID 03/24/17 07/13/21 History [Adderall] Albuterol Sulfate [Albuterol 2 puff PO RT-Q6H PRN 07/13/21 07/13/21 History Sulfate Hfa] Allergies Allergy/AdvReac Type Severity Reaction Status Date / Time No Known Allergies Allergy Verified 07/13/21 19:51 Physical Exam Vitals: Vital Signs Temp Pulse Pulse Resp BP BP Pulse Ox 07/14/21 04:33 98.1 F 114 H 16 105/73 100 07/14/21 02:35 118 H 07/14/21 00:34 97.9 F 92 16 121/83 100 07/13/21 22:00 97.7 F 129 H 14 108/77 98 07/13/21 21:06 125 H 07/13/21 21:01 133 H 07/13/21 20:33 132 H 22 124/68 98 07/13/21 20:00 129 H 07/13/21 17:53 132 H 20 117/85 97 Intake and Output 07/13/21 07/14/21 07/14/21 22:59 06:59 14:59 Output Total 300 575 Balance -300 -575 Output: Urine 300 575 Other: Voiding Method Toilet Toilet Urinal Urinal # Voids 1 Weight 75.75 kg Results 07/14/21 08:48 07/14/21 08:48 Cardiac Enzymes 07/13/21 07/13/21 Range/Units 18:28 22:59 AST 19 (17-59) U/L Troponin I 0.024 (0.000-0.034) ng/mL Coagulation 07/13/21 Range/Units 18:28 PT 11.8 (9.0-12.0) sec APTT 26.4 (22.0-30.0) sec CBC 07/13/21 Range/Units 18:28 WBC 8.1 (3.8-10.6) k/uL RBC 4.37 (4.30-5.90) m/uL Hgb 14.2 (13.0-17.5) gm/dL Hct 42.3 (39.0-53.0) % Plt Count 405 (150-450) k/uL Comprehensive Metabolic Panel 07/13/21 Range/Units 18:28 Sodium 136 L (137-145) mmol/L Potassium 4.0 (3.5-5.1) mmol/L Chloride 103 (98-107) mmol/L Carbon Dioxide 24 (22-30) mmol/L BUN 13 (9-20) mg/dL Creatinine 0.91 (0.66-1.25) mg/dL Glucose 91 (74-99) mg/dL Calcium 8.5 (8.4-10.2) mg/dL AST 19 (17-59) U/L ALT 14 (4-49) U/L Alkaline Phosphatase 76 (38-126) U/L Total Protein 6.5 (6.3-8.2) g/dL Albumin 3.7 (3.5-5.0) g/dL Current Medications Generic Name Dose Route Start Last Admin Trade Name Freq PRN Reason Stop Dose Admin Albuterol/Ipratropium 3 ml 07/13/21 20:00 07/13/21 22:32 Ipratropium-Albuterol 3 Ml Neb INHALATION Not Given RT-QID LUPE Albuterol/Ipratropium 3 ml 07/13/21 19:43 Ipratropium-Albuterol 3 Ml Neb INHALATION RT-Q4H PRN shortness of breath Enoxaparin Sodium 40 mg 07/14/21 09:00 Enoxaparin 40 Mg/0.4 Ml Syringe SQ DAILY [facility] Furosemide 40 mg 07/14/21 09:00 Furosemide 10 Mg/Ml 4 Ml Vial IV DAILY [facility] Levofloxacin 750 mg 07/14/21 21:00 Levofloxacin 750 Mg Tab PO 07/17/21 21:01 HS [facility] Protocol Miscellaneous Information 1 each 07/13/21 19:43 Pneumonia Protocol Utilized 1 Each Misc PO ONCE PRN Per Protocol Intake and Output 07/13/21 07/14/21 07/14/21 22:59 06:59 14:59 Output Total 300 575 Balance -300 -575 Output: Urine 300 575 Other: Voiding Method Toilet Toilet Urinal Urinal # Voids 1 Weight 75.75 kg 07/13/21 18:28 07/13/21 18:28
[2021-07-14] MEDS: SPIRONOLACTONE 25 MG TAB PO SCH (13:00)
[2021-07-14 13:46] VITALS: BMI 26.9
--- NOTE | 2021-07-14 13:46 | P.CNPUL ---
History of Present Illness Consult date: 07/14/21 Reason for consult: dyspnea History of present illness: This is a 35-year-old male patient, coming into the hospital because of worsening shortness of breath. The patient started having some increased dyspnea cough and he was seen by his primary care physician outpatient basis and he was given a course of antibiotics and albuterol rescue inhaler. He did not improve and the patient became progressively more short of breath and he was having exertional dyspnea and orthopnea and some increase in lower activity edema. He drinks alcohol on a daily basis. He is an ex-smoker and quit smoking approximately 5 years ago. No angina. No palpitation. He has history of ADHD/ADD and the patient is demented and had an outpatient basis. No drug overdose. No active substance abuse. No history of any rheumatic fever or valvular heart disease. No congenital heart disease. No previous history of myocardial infarction. The patient came in with a white cell count of 8.1 with a hemoglobin of 14.2. Normal coagulation profile. Normal electrolytes. ProBNP level was 2360. LEVEL WAS 0.05. UA WAS SHOWING +1 PROTEIN, +2 KETONES, 4 WBCS I, AND A URINE DRUG SCREEN WAS POSITIVE FOR AMPHETAMINE. COVID 19 testing came back negative and influenza screen was also negative and the chest x-ray showed diffuse bilateral pulmonary infiltrates with a batwing appearance consistent with acute pulmonary edema. The patient currently is on Coreg 1.563 mg by mouth twice a day in addition to Lasix 40 mg IV daily basis. The patient was also started on Aldactone 12.5 mg by mouth daily and the patient was started empirically on Levaquin. The patient is currently on 2 L of oxygen by nasal cannula with a pulse ox of 97% the EKG at time of admission showed sinus tachycardia. No acute ischemic changes. Review of Systems Constitutional: Denies chills, Denies fever Eyes: denies as per HPI, denies blurred vision, denies bulging eye, denies decreased vision, denies diplopia, denies discharge, denies dry eye, denies irritation, denies itching, denies pain, denies photophobia, denies loss of peripheral vision, denies loss of vision, denies tunnel vision/blind spots Ears: deny: decreased hearing, ear discharge, earache, tinnitus Ears, nose, mouth and throat: Denies headache, Denies sore throat Breasts: absent: as per HPI, gynecomastia Cardiovascular: Reports decreased exercise tolerance, Reports dyspnea on exertion, Reports shortness of breath Respiratory: Reports cough Gastrointestinal: Reports as per HPI Genitourinary: Reports as per HPI Musculoskeletal: Reports as per HPI Musculoskeletal: absent: ankle pain, ankle stiffness, ankle swelling Integumentary: Reports as per HPI Neurological: Reports as per HPI Psychiatric: Reports as per HPI Endocrine: Reports as per HPI Hematologic/Lymphatic: Reports as per HPI Allergic/Immunologic: Reports as per HPI Past Medical History Past Medical History: No Reported History Additional Past Medical History / Comment(s): 12-29-17 pt wants both flu and pne vaccine this admit. concussion few weeks ago( while changing a tire- accidently was hit in head with a metal pipe) ,add/adhd,scoliosis."heartburn", shingles 2007, History of Any Multi-Drug Resistant Organisms: None Reported Past Surgical History: Hernia Repair Additional Past Surgical History / Comment(s): rt inguinal hernia repair, rt hand repair after a drill went thru it. Past Anesthesia/Blood Transfusion Reactions: Motion Sickness Additional Past Anesthesia/Blood Transfusion Reaction / Comment(s): past "sea sickness" Past Psychological History: ADD/ADHD Smoking Status: Former smoker Past Alcohol Use History: None Reported Past Drug Use History: None Reported Additional Drug Use History / Comment(s): occ use - Past Family History Father Family Medical History: COPD, Coronary Artery Disease (CAD), Diabetes Mellitus Mother Family Medical History: Hypertension, Sleep Apnea/CPAP/BIPAP Additional Family Medical History / Comment(s): osteoporosis, fatty liver Medications and Allergies Home Medications Medication Instructions Recorded Confirmed Type Dextroamphetamine/Amphetamine 30 mg PO BID 03/24/17 07/13/21 History [Adderall] Albuterol Sulfate [Albuterol 2 puff PO RT-Q6H PRN 07/13/21 07/13/21 History Sulfate Hfa] Allergies Allergy/AdvReac Type Severity Reaction Status Date / Time No Known Allergies Allergy Verified 07/13/21 19:51 Physical Exam Vitals: Vital Signs Temp Pulse Pulse Resp BP BP Pulse Ox 07/14/21 11:29 122 H 18 07/14/21 09:03 126 H 20 07/14/21 08:50 124 H 20 99 07/14/21 08:15 98.1 F 118 H 16 97/71 98 07/14/21 04:33 98.1 F 114 H 16 105/73 100 07/14/21 02:35 118 H 07/14/21 00:34 97.9 F 92 16 121/83 100 07/13/21 22:00 97.7 F 129 H 14 108/77 98 07/13/21 21:06 125 H 07/13/21 21:01 133 H 07/13/21 20:33 132 H 22 124/68 98 07/13/21 20:00 129 H 07/13/21 17:53 132 H 20 117/85 97 FiO2 07/14/21 11:29 07/14/21 09:03 07/14/21 08:50 21 07/14/21 08:15 07/14/21 04:33 07/14/21 02:35 07/14/21 00:34 07/13/21 22:00 07/13/21 21:06 07/13/21 21:01 07/13/21 20:33 07/13/21 20:00 07/13/21 17:53 Intake and Output 07/13/21 07/14/21 07/14/21 22:59 06:59 14:59 Output Total 724 584 5569 Balance -300 -575 -1500 Output: Urine 254 609 7613 Other: Voiding Method Toilet Toilet Toilet Urinal Urinal Urinal # Voids 1 Weight 75.75 kg GENERAL: Well-developed in no acute distress. Head exam was generally normal. There was no scleral icterus or corneal arcus. Mucous membranes were moist. HEENT: Head is normocephalic. Pupils are equal, round. Sclerae anicteric. Mucous membranes of the mouth are moist. Neck supple. No JVD or thyromegaly LUNGS: Respirations even and unlabored. Lungs diminished to auscultation bilaterally. HEART: Regular rate and rhythm. S1 and S2 heard. The patient is a gallop rhythm and the patient has an S3 gallop and the patient is also sinus tachycardia ABDOMEN: Soft. Nondistended. Nontender. EXTREMITIES: Normal range of motion. No clubbing or cyanosis. Peripheral pulses intact. Trace lower extremity edema NEUROLOGIC: Awake and alert. Oriented x 3. Examination of the skin revealed no evidence of significant rashes, suspicious appearing nevi or other concerning lesions. Results - Laboratory Findings CBC and BMP: 07/14/21 08:48 07/14/21 08:48 PT/INR, D-dimer PT 11.8 sec (9.0-12.0) 07/13/21 18:28 INR 1.1 (<1.2) 07/13/21 18:28 Abnormal lab findings: Abnormal Labs 07/13/21 07/13/21 07/13/21 18:28 18:28 20:56 Sodium 136 L Glucose Urine Protein 1+ H Urine Ketones 2+ H Ur Leukocyte Esterase Trace H Urine RBC 6 H Hyaline Casts 6 H Urine Mucus Many H Ur Amphetamines Screen Detected H 07/14/21 08:48 Sodium Glucose 136 H Urine Protein Urine Ketones Ur Leukocyte Esterase Urine RBC Hyaline Casts Urine Mucus Ur Amphetamines Screen Assessment and Plan Plan: Acute hypoxic respiratory failure currently on 2 L of oxygen by nasal cannula, under investigation. Suspect acute decompensated heart failure. Infection/pneumonia is felt to be less likely. Pro-calcitonin level is low, the patient had an elevated proBNP level consistent with CHF Acute shortness of breath secondary to above acute by the pulmonary infiltrates, likely secondary to pulmonary edema Sinus tachycardia. History of ADD/ADHD maintained on Adderall an outpatient basis Scoliosis Acid reflux Remote history of shingles Data: Drinking, no clear indication for alcoholism Plan Continue same treatment Check a Legionella urine antigen Check echocardiogram Repeat x-ray with next 2448 hrs. COVID 19 testing is been negative Influenza screen is negative We'll follow 2
--- NOTE | 2021-07-14 18:07 | P.PN ---
Subjective Progress Note Date: 07/14/21 Hospital course: Patient is a very pleasant 35-year-old male with a past medical history of ADHD. He presented to the emergency department on 07/13/21 with a chief complaint of dyspnea beginning approximately 3 weeks ago and progressively worsening. Patient received outpatient course of azithromycin but reports no improvement and only worsening of condition. Patient underwent full evaluation in the emergency department and was found to have sinus tachycardia with heart rate of 132. CBC, CMP, and troponin all negative. ProBNP was found to be elevated at 2360. Urine drug screen was positive for amphetamines in which patient is prescribed. Influenza A/B and Covid negative. Chest x-ray revealing pulmonary edema. EKG showing sinus tachycardia 127 bpm with no noted T-wave or ST abnormalities. Patient was admitted under our services with consultation to cardiology and pulmonology. Pro-calcitonin negative at 0.05. Patient has remained afebrile throughout hospitalization with normal WBCs. Physical exam: Vital signs reviewed and stable. General: Nontoxic, no distress and appears stated age. Derm: Skin warm and dry, normal coloration for ethnicity. Head: Atraumatic, normocephalic and symmetric. Eyes: EOMs intact, no lid lag, and anicteric sclera Mouth: no lip lesions, mucus membranes moist Cardiovascular: Tachycardic rate and regular rhythm with normal S1S2, no murmur, positive posterior tibial pulses bilaterally, and cap refill < 2 seconds. Lungs: Respirations even, regular, and unlabored on room air. Lungs CTA bilaterally, no rhonchi, no rales, no wheezing, and no accessory muscle usage. Abdominal: soft, nontender to palpation, no guarding, no appreciable organomegaly Ext: ROM intact. No gross muscle atrophy, no edema, no contractures Neuro: Speech clear, face symmetrical and CN II-XII grossly intact with no noted focal neuro deficits Psych: Alert and oriented to person, place, time, and situation. Appropriate and pleasant affect. Assessment and Plan of Care: Acute respiratory failure with hypoxia, suspect acute decompensated heart f ailure Dyspnea, progressively worsened -Cardiology following, appreciate further recommendations -Telemetry monitoring -Pulmonology following -Cardiac diet -Continue Coreg, Lasix, and Aldactone -Echocardiogram completed pending results -Close monitoring of I's and O's while diuresing -Pro-calcitonin negative, Covid PCR negative, influenza A/B negative. Urine Legionella negative. -Continuation of duo nebs as needed for wheezing/shortness of breath. -Continue prophylactic IV antibiotic with Levaquin pending further results. ADHD -Hold Adderall secondary to sinus tachycardia CODE STATUS: Full code DVT prophylaxis: Lovenox Discussed with: Patient and RN Anticipated discharge date: Clinical course to determine Anticipated discharge place: Home A total of 32 minutes was spent on the care of this complex patient more than 50% of the time was spent in counseling and care coordination. Gregor Camarillo NP rendered care for this patient independently, reviewed the findings and plan as documented in the note above. I did not physically speak with or examine the patient on this date. EF 20-25% with severe systolic CHF, stop abx Objective - Vital Signs Vital signs: Vital Signs Temp 98.1 F 07/14/21 04:33 Pulse 114 H 07/14/21 04:33 Resp 16 07/14/21 04:33 BP 105/73 07/14/21 04:33 Pulse Ox 100 07/14/21 04:33 FiO2 Intake & Output 07/13/21 07/14/21 07/14/21 18:59 06:59 18:59 Output Total 875 Balance -875 Weight 75.75 kg 75.75 kg Output: Urine 875 Other: Voiding Method Toilet Urinal # Voids 1 - Labs CBC & Chem 7: 07/14/21 08:48 07/14/21 08:48 Labs: Abnormal Lab Results - Last 24 Hours (Table) 07/13/21 07/13/21 07/13/21 Range/Units 18:28 18:28 20:56 Sodium 136 L (137-145) mmol/L Urine Protein 1+ H (Negative) Urine Ketones 2+ H (Negative) Ur Leukocyte Esterase Trace H (Negative) Urine RBC 6 H (0-5) /hpf Hyaline Casts 6 H (0-2) /lpf Urine Mucus Many H (None) /hpf Ur Amphetamines Screen Detected H (NotDetected)
--- NOTE | 2021-07-14 18:54 | CA ---
Transthoracic Echo Report Name: Danilo Wise Age: 35 Gender: M : 1985 Exam Date: 07/14/2021 07:48 Exam Location: [place] [facility] Ht (in): 66 Wt (lb): 167 Ordering Physician: Homero Pizano DO Attending/Referring Phys: Associate Account Director Karina Cano RDCS Procedure CPT: Indications: Heart failure Cardiac Hx: Technical Quality: Good Contrast 1: Total Dose (mL): Contrast 2: Total Dose (mL): MEASUREMENTS (Male / Female) Normal Values 2D ECHO LV Diastolic Diameter PLAX 5.9 cm 4.2 - 5.9 / 3.9 - 5.3 cm LV Systolic Diameter PLAX 5.2 cm IVS Diastolic Thickness 0.9 cm 0.6 - 1.0 / 0.6 - 0.9 cm LVPW Diastolic Thickness 1.0 cm 0.6 - 1.0 / 0.6 - 0.9 cm LV Relative Wall Thickness 0.3 RV Internal Dim ED PLAX 2.3 cm LA Systolic Diameter LX 3.7 cm 3.0 - 4.0 / 2.7 - 3.8 cm LA Volume 63.5 cm??? 18 - 58 / 22 - 52 cm??? M-MODE Aortic Root Diameter MM 3.3 cm MV E Point Septal Separation 2.3 cm AV Cusp Separation MM 2.3 cm DOPPLER AV Peak Velocity 70.1 cm/s AV Peak Gradient 2.0 mmHg MV Area PHT 9.1 cm??? Mitral E Point Velocity 110.6 cm/s Mitral A Point Velocity 47.0 cm/s Mitral E to A Ratio 2.4 MV Deceleration Time 83.5 ms MV E' Velocity 4.9 cm/s Mitral E to MV E' Ratio 22.4 TR Peak Velocity 306.8 cm/s TR Peak Gradient 37.7 mmHg Right Ventricular Systolic Press 42.7 mmHg FINDINGS Left Ventricle Left ventricular ejection fraction is estimated at 20-25 %. Left ventricular cavity size upper normal limits.left ventricular wall thickness normal. Right Ventricle Normal right ventricular size. Mild pulmonary hypertension. Right Atrium Normal right atrial size. Left Atrium Mildly increased left atrial volume. No evidence for an atrial septal defect. Mitral Valve Moderate mitral regurgitation. Aortic Valve Trileaflet aortic valve. No aortic valve stenosis or regurgitation. Tricuspid Valve Mild tricuspid regurgitation. Pulmonic Valve Structurally normal pulmonic valve. Pericardium Normal pericardium. Aorta Normal size aortic root and proximal ascending aorta. CONCLUSIONS Dilated left ventricle with severely dysfunction and moderate mitral regurg to Previewed by: Dr. Blayne Segal MD (Electronically Signed) Final Date: 14 Jul 2021 18:53
[2021-07-14] MEDS ORDERED: LEVOFLOXACIN 750 MG TAB PO SCH (21:00)
[2021-07-15] MEDS: IPRATROPIUM-ALBUTEROL 3 ML NEB INHALATION SCH ×2 (07:19→11:06)
[2021-07-15] MEDS: ENOXAPARIN 40 MG/0.4 ML SYRINGE SQ SCH (09:43)
[2021-07-15] MEDS: SPIRONOLACTONE 25 MG TAB PO SCH (09:44)
[2021-07-15] MEDS: FUROSEMIDE 10 MG/ML 4 ML VIAL IV SCH (09:44)
[2021-07-15 09:47] LABS: HCT 41.8 % (39.0-53.0); HGB 13.7 gm/dL (13.0-17.5); MCHC 32.9 g/dL (31.0-37.0); MCV 97.2 fL (80.0-100.0); Mean Platelet Volume 8.2; Platelet Count 353 k/uL (150-450); RBC 4.29 m/uL (4.30-5.90); RDW 11.5 % (11.5-15.5); WBC 6.2 k/uL (3.8-10.6)
[2021-07-15 10:05] LABS: ALT 16 U/L (4-49); AST 22 U/L (17-59); African American GFR (CKD) >90 (>60 ml/min/1.73 sqM); Albumin 3.1 g/dL (3.5-5.0); Alkaline Phosphatase 67 U/L (38-126); Anion Gap 8 mmol/L; Blood Urea Nitrogen 14 mg/dL (9-20); Calcium 8.5 mg/dL (8.4-10.2); Carbon Dioxide 25 mmol/L (22-30); Chloride 104 mmol/L (98-107); Glucose 143 mg/dL (74-99); Magnesium 1.8 mg/dL (1.6-2.3); Non-African American GFR(CKD) >90 (>60 ml/min/1.73 sqM); Potassium 4.2 mmol/L (3.5-5.1); Sodium 137 mmol/L (137-145); Total Bilirubin 0.5 mg/dL (0.2-1.3); Total Protein 5.8 g/dL (6.3-8.2)
--- NOTE | 2021-07-15 11:21 | P.PN ---
Subjective Progress Note Date: 07/15/21 This is a 35-year-old male patient, coming into the hospital because of worsening shortness of breath. The patient started having some increased dyspnea cough and he was seen by his primary care physician outpatient basis and he was given a course of antibiotics and albuterol rescue inhaler. He did not improve and the patient became progressively more short of breath and he was having exertional dyspnea and orthopnea and some increase in lower activity edema. He drinks alcohol on a daily basis. He is an ex-smoker and quit smoking approximately 5 years ago. No angina. No palpitation. He has history of ADHD/ADD and the patient is demented and had an outpatient basis. No drug overdose. No active substance abuse. No history of any rheumatic fever or valvular heart disease. No congenital heart disease. No previous history of myocardial infarction. The patient came in with a white cell count of 8.1 with a hemoglobin of 14.2. Normal coagulation profile. Normal electrolytes. ProBNP level was 2360. LEVEL WAS 0.05. UA WAS SHOWING +1 PROTEIN, +2 KETONES, 4 WBCS I, AND A URINE DRUG SCREEN WAS POSITIVE FOR AMPHETAMINE. COVID 19 testing came back negative and influenza screen was also negative and the chest x-ray showed diffuse bilateral pulmonary infiltrates with a batwing appearance consistent with acute pulmonary edema. The patient currently is on Coreg 1.563 mg by mouth twice a day in addition to Lasix 40 mg IV daily basis. The patient was also started on Aldactone 12.5 mg by mouth daily and the patient was started empirically on Levaquin. The patient is currently on 2 L of oxygen by nasal cannula with a pulse ox of 97% the EKG at time of admission showed sinus tachycardia. No acute ischemic changes. 07/15/2021, the patient is comfortable on room in oxygen. The patient remains on the same treatment. Echocardiogram was completed and the patient was found to have impairment of LV function with an ejection fraction of 20-25% consistent with severe cardiomyopathy. Left ventricular cavity was at the upper size of normal. RV was normal. No evidence of any pulmonary hypertension. The patient also had moderate degree of mitral regurgitation,. No evidence of any aortic root aneurysm. As far as treatment, the patient remains on IV Lasix as the p atient was in acute pulmonary edema the time of admission. His proBNP level was 2360. His PRO-CALCITONIN WAS LOW. A REPEAT CHEST X-RAY WAS DONE AND IS SHOWING SIGNIFICANT IMPROVEMENT IN THE PULMONARY EDEMA SEEN EARLIER ALTHOUGH IT HAS NOT COMPLETELY SUBSIDED. Objective - Vital Signs Vital signs: Vital Signs Temp 97.6 F 07/15/21 08:00 Pulse 122 H 07/15/21 11:08 Resp 17 07/15/21 08:00 BP 90/60 07/15/21 08:00 Pulse Ox 97 07/15/21 08:00 FiO2 21 07/14/21 08:50 Intake & Output 07/14/21 07/15/21 07/15/21 18:59 06:59 18:59 Intake Total 118 Output Total 2660 960 Balance -2660 -960 118 Weight 75.75 kg Intake: Oral 118 Output: Urine 2660 960 Other: Voiding Method Toilet Toilet Toilet Urinal Urinal Urinal # Voids 1 - Exam GENERAL: Well-developed in no acute distress. Head exam was generally normal. There was no scleral icterus or corneal arcus. Mucous membranes were moist. HEENT: Head is normocephalic. Pupils are equal, round. Sclerae anicteric. Mucous membranes of the mouth are moist. Neck supple. No JVD or thyromegaly LUNGS: Respirations even and unlabored. Lungs diminished to auscultation bilaterally. HEART: Regular rate and rhythm. S1 and S2 heard. The patient is a gallop rhythm and the patient has an S3 gallop and the patient is also sinus tachycardia ABDOMEN: Soft. Nondistended. Nontender. EXTREMITIES: Normal range of motion. No clubbing or cyanosis. Peripheral pulses intact. Trace lower extremity edema NEUROLOGIC: Awake and alert. Oriented x 3. Examination of the skin revealed no evidence of significant rashes, suspicious appearing nevi or other concerning lesions. - Labs CBC & Chem 7: 07/15/21 08:49 07/15/21 08:49 Labs: Abnormal Lab Results - Last 24 Hours (Table) 07/15/21 07/15/21 Range/Units 08:49 08:49 RBC 4.29 L (4.30-5.90) m/uL Glucose 143 H (74-99) mg/dL Total Protein 5.8 L (6.3-8.2) g/dL Albumin 3.1 L (3.5-5.0) g/dL Microbiology - Last 24 Hours (Table) 07/13/21 18:45 Blood Culture - Preliminary Blood No Growth after 24 hours 07/13/21 18:28 Blood Culture - Preliminary Blood No Growth after 24 hours Assessment and Plan Plan: Acute hypoxic respiratory failure currently on RA 02 Acute shortness of breath secondary to above , improved Acute systolic heart failure with an ejection fraction of 20-25% with moderate degree of mitral regurgitation, consider viral cardiomyopathy. Ischemic cardiomyopathy with alcoholic cardiomyopathy is felt to be less likely. Acute pulmonary edema, improving acute pulmonary infiltrates, likely secondary to pulmonary edema Sinus tachycardia. This is secondary to cardiomyopathy. History of ADD/ADHD maintained on Adderall an outpatient basis Scoliosis Acid reflux Remote history of shingles Plan Discontinue the breathing treatments Acute pulmonary edema is improving Discontinue the nebulized treatments Continue the diuretics as the patient's acute pulmonary edema is improving, currently on a combination of Lasix and Aldactone and the patient was also started on Coreg to optimize his CHF. Follow-up with cardiology. Pulmonary edema is improving.
--- NOTE | 2021-07-15 11:53 | XR ---
EXAMINATION TYPE: XR chest 1V portable DATE OF EXAM: 07/15/2021 COMPARISON: Chest x-ray 07/14/2021 HISTORY: Pulmonary edema TECHNIQUE: Single frontal view of the chest is obtained. FINDINGS: There is some improvement in the confluent airspace disease seen on previous exam. No othe r significant interval change. IMPRESSION: Improvement in aeration.
--- NOTE | 2021-07-15 13:11 | P.PN ---
Subjective Progress Note Date: 07/15/21 Hospital course: Patient is a very pleasant 35-year-old male with a past medical history of ADHD. He presented to the emergency department on 07/13/21 with a chief complaint of dyspnea beginning approximately 3 weeks ago and progressively worsening. Patient received outpatient course of azithromycin but reports no improvement and only worsening of condition. Patient underwent full evaluation in the emergency department and was found to have sinus tachycardia with heart rate of 132. CBC, CMP, and troponin all negative. ProBNP was found to be elevated at 2360. Urine drug screen was positive for amphetamines in which patient is prescribed. Influenza A/B and Covid negative. Chest x-ray revealing pulmonary edema. EKG showing sinus tachycardia 127 bpm with no noted T-wave or ST abnormalities. Patient was admitted under our services with consultation to cardiology and pulmonology. Pro-calcitonin negative at 0.05. Patient has remained afebrile throughout hospitalization with normal WBCs. Levaquin was discontinued as infectious process ruled out. Echocardiogram revealing a severely impaired EF of 20-25% with a dilated left ventricle, moderate mitral regurgitation and mild pulmonary hypertension. Patient being treated with Lasix, Aldactone, and carvedilol. Physical exam: Patient seen and fully evaluated at bedside this morning. He appeared to be doing well. He remains tachycardic with heart rate 120s and is hypotensive this morning with blood pressure of 90/60, likely secondary to starting on beta neel as well as currently undergoing diuresis. Morning labs reviewed and stable. Patient currently denies having any chest pain, palpitations, or shor tness of breath at rest. Patient does report continued shortness of breath with exertion and nonproductive cough. Patient has had very good urinary output over the past 24 hours with 3620 mL. Vital signs reviewed and stable. General: Nontoxic, no distress and appears stated age. Derm: Skin warm and dry, normal coloration for ethnicity. Head: Atraumatic, normocephalic and symmetric. Eyes: EOMs intact, no lid lag, and anicteric sclera Mouth: no lip lesions, mucus membranes moist Cardiovascular: Tachycardic rate and regular rhythm with normal S1S2, no murmur, positive posterior tibial pulses bilaterally, and cap refill < 2 seconds. Lungs: Respirations even, regular, and unlabored on room air with SpO2 of 97%. Lungs diffusely diminished, worse on left. No rhonchi, no rales, no wheezing, and no accessory muscle usage. Abdominal: soft, nontender to palpation, no guarding, no appreciable organomegaly Ext: ROM intact. No gross muscle atrophy, no edema, no contractures Neuro: Speech clear, face symmetrical and CN II-XII grossly intact with no noted focal neuro deficits Psych: Alert and oriented to person, place, time, and situation. Appropriate and pleasant affect. Assessment and Plan of Care: Decompensated systolic heart failure with EF of 20-25% Acute respiratory failure with hypoxia, suspect acute decompensated heart failure Dyspnea, progressively worsened -Cardiology following, appreciate further recommendations -Telemetry monitoring -Pulmonology following -Cardiac diet -Continue Coreg, Lasix, and Aldactone - Echocardiogram revealing a severely impaired EF of 20-25% with a dilated left ventricle, moderate mitral regurgitation and mild pulmonary hypertension -Close monitoring of I's and O's while diuresing, 3620 mL of output over the past 24 hours -Pro-calcitonin negative, Covid PCR negative, influenza A/B negative. Urine Legionella negative. -Continuation of duo nebs as needed for wheezing/shortness of breath. -IV antibiotic with Levaquin discontinued, pneumonia ruled out acute respiratory failure with hypoxia secondary to acute systolic decompensated heart failure. ADHD -Hold Adderall secondary to sinus tachycardia CODE STATUS: Full code DVT prophylaxis: Lovenox Discussed with: Patient and RN Anticipated discharge date: Clinical course to determine Anticipated discharge place: Home A total of 32 minutes was spent on the care of this complex patient more than 50% of the time was spent in counseling and care coordination. I reviewed the documentation as provided by the ANGELICA above, who is the original author of this note. I agree with the documented assessment and plan, with the following changes: none Objective - Vital Signs Vital signs: Vital Signs Temp 97.8 F 07/15/21 03:00 Pulse 123 H 07/15/21 07:30 Resp 18 07/15/21 03:00 BP 107/69 07/15/21 03:00 Pulse Ox 96 07/15/21 07:21 FiO2 21 07/14/21 08:50 Intake & Output 07/14/21 07/15/21 07/15/21 18:59 06:59 18:59 Output Total 2660 960 Balance -2660 -960 Weight 75.75 kg Output: Urine 2660 960 Other: Voiding Method Toilet Toilet Urinal Urinal # Voids 1 - Labs CBC & Chem 7: 07/15/21 08:49 07/15/21 08:49 Labs: Abnormal Lab Results - Last 24 Hours (Table) 07/14/21 Range/Units 08:48 Glucose 136 H (74-99) mg/dL Microbiology - Last 24 Hours (Table) 07/13/21 18:45 Blood Culture - Preliminary Blood No Growth after 24 hours 07/13/21 18:28 Blood Culture - Preliminary Blood No Growth after 24 hours
--- NOTE | 2021-07-15 17:35 | P.PN ---
Subjective Progress Note Date: 07/15/21 This is a 35-year-old male with a past medical history significant for ADD/ADHD and nicotine dependence. 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 We have been asked to see the patient in consultation for possible heart failure. Patient examined at the bedside. Patient states he started coughing about a month ago. He states he was seen by his primary care physician and started on antibiotics and then albuterol. The patient states recently he has been feeling short of breath with minimal exertion and having some lower extremity edema. He denies any chest pain or pressure. Denies dizziness or lightheadedness. The patient is a current cigarette smoker and smokes approximately one pack per day. The patient also reports drinking 2-3 times a week and states he has 5-6 drinks on each occasion of captain and Coke. * EKG reveals sinus tachycardia with a heart rate of 127 * Chest xray correlate for congestive heart failure and pulmonary edema, pneumonia not excluded * Laboratory data: WBC 8.1. Hemoglobin 14.2. Platelet count 405. Sodium 136. Potassium 4.0. BUN 13. Creatinine 0.91. Lactic acid 1.5. Troponin 0.042. ProBNP 2360. * Current home cardiac medications include none * Most recent echocardiogram obtained in December 2017 revealed ejection fraction 55-60%, trace MR, trace TR * Patient underwent stress test in December 2017 which was inconclusive secondary to patient's inability to change target heart rate. 07/15/2021: This patient is feeling better. Chest x-ray still shows evidence of pulmonary edema. His blood pressure is running low. Denies any chest pain. No arrhythmias noted. Renal functions are stable. I'm going to start him on by mouth Lanoxin. The etiology of cardiomyopathy is not clear. Rule out viral myocarditis. We'll may also evaluate him to rule out underlying ischemic heart disease either by cardiac catheterization or a Lexiscan stress test. A she also may need LifeVest before he leaves the hospital. Further recommendation will d epend upon clinical course Objective - Vital Signs Vital signs: Vital Signs Temp 98.5 F 07/15/21 12:00 Pulse 123 H 07/15/21 14:00 Resp 17 07/15/21 14:00 BP 103/71 07/15/21 12:00 Pulse Ox 97 07/15/21 12:00 FiO2 21 07/14/21 08:50 Intake & Output 07/14/21 07/15/21 07/15/21 18:59 06:59 18:59 Intake Total 236 Output Total 2660 960 1999 Balance -5590 -957 -1721 Weight 75.75 kg Intake: Oral 236 Output: Urine 2660 960 1999 Other: Voiding Method Toilet Toilet Toilet Urinal Urinal Urinal # Voids 1 - Exam GENERAL EXAM: Patient is alert and oriented and doesn't appear to be in any acute distress HEENT: Normocephalic. Normal reaction of pupils, equal size, normal range of extraocular motion. No erythema or exudates in the throat. NECK: No masses, no nuchal rigidity. CHEST: No chest wall deformity. LUNGS: Diminished breath sounds HEART: S1 and S2 . S3 gallop.. ABDOMEN: No hepatosplenomegaly, normal bowel sounds, no guarding or rigidity. SKIN: No rashes CENTRAL NERVOUS SYSTEM: No focal deficits. EXTREMITIES: Resolving edema - Labs CBC & Chem 7: 07/15/21 08:49 07/15/21 08:49 Labs: Abnormal Lab Results - Last 24 Hours (Table) 07/15/21 07/15/21 Range/Units 08:49 08:49 RBC 4.29 L (4.30-5.90) m/uL Glucose 143 H (74-99) mg/dL Total Protein 5.8 L (6.3-8.2) g/dL Albumin 3.1 L (3.5-5.0) g/dL Microbiology - Last 24 Hours (Table) 07/13/21 18:45 Blood Culture - Preliminary Blood No Growth after 24 hours 07/13/21 18:28 Blood Culture - Preliminary Blood No Growth after 24 hours Assessment and Plan (1) Acute systolic CHF (congestive heart failure) Current Visit: Yes Status: Acute Code(s): I50.21 - ACUTE SYSTOLIC (CONGESTIVE) HEART FAILURE SNOMED Code(s): 588819307 (2) Nonischemic cardiomyopathy Current Visit: Yes Status: Acute Code(s): I42.8 - OTHER CARDIOMYOPATHIES SNOMED Code(s): 72998736 (3) History of alcohol use Current Visit: Yes Status: Acute Code(s): Z87.898 - PERSONAL HISTORY OF OT HER SPECIFIED CONDITIONS SNOMED Code(s): 792431282 Plan: Continue current medical therapy. Add Lanoxin. Follow lab work closely. Further recommendations depend upon the clinical course
[2021-07-16] MEDS: ENOXAPARIN 40 MG/0.4 ML SYRINGE SQ SCH (09:08)
[2021-07-16] MEDS: SPIRONOLACTONE 25 MG TAB PO SCH (09:08)
[2021-07-16] MEDS: DIGOXIN 250 MCG TAB PO SCH (09:10)
[2021-07-16] MEDS: FUROSEMIDE 10 MG/ML 4 ML VIAL IV SCH (09:10)
[2021-07-16 10:18] LABS: Basophils # (A) 0.1 k/uL (0-0.2); Basophils % (A) 1 %; Eosinophils # (A) 0.3 k/uL (0-0.7); Eosinophils % (A) 5 %; HCT 42.8 % (39.0-53.0); Lymphocytes # (A) 1.3 k/uL (1.0-4.8); Lymphocytes % (A) 21 %; MCH 31.8 pg (25.0-35.0); MCHC 32.8 g/dL (31.0-37.0); MCV 97.2 fL (80.0-100.0); Mean Platelet Volume 8.6; Monocytes # (A) 0.4 k/uL (0-1.0); Monocytes % (A) 6 %; Neutrophils # (A) 4.1 k/uL (1.3-7.7); Neutrophils % (A) 65 %; Platelet Count 375 k/uL (150-450); RDW 11.5 % (11.5-15.5); WBC 6.3 k/uL (3.8-10.6)
[2021-07-16 14:42] LABS: ALT 21 U/L (4-49); AST 28 U/L (17-59); African American GFR (CKD) >90 (>60 ml/min/1.73 sqM); Albumin 3.3 g/dL (3.5-5.0); Alkaline Phosphatase 68 U/L (38-126); Anion Gap 7 mmol/L; Blood Urea Nitrogen 15 mg/dL (9-20); Calcium 8.6 mg/dL (8.4-10.2); Carbon Dioxide 27 mmol/L (22-30); Chloride 104 mmol/L (98-107); Glucose 75 mg/dL (74-99); Magnesium 2.1 mg/dL (1.6-2.3); Non-African American GFR(CKD) >90 (>60 ml/min/1.73 sqM); Potassium 4.5 mmol/L (3.5-5.1); Sodium 138 mmol/L (137-145); Total Bilirubin 0.4 mg/dL (0.2-1.3); Total Protein 6.1 g/dL (6.3-8.2)
--- NOTE | 2021-07-16 14:42 | P.PN ---
Subjective Progress Note Date: 07/16/21 HISTORY OF PRESENT ILLNESS: This is a 35-year-old male with a past medical history significant for ADD/ADHD and nicotine dependence. 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 We have been asked to see the patient in consultation for possible heart failure. Patient examined at the bedside. Patient states he started coughing about a month ago. He states he was seen by his primary care physician and started on antibiotics and then albuterol. The patient states recently he has been feeling short of breath with minimal exertion and having some lower extremity edema. He denies any chest pain or pressure. Denies dizziness or lightheadedness. The patient is a current cigarette smoker and smokes approximately one pack per day. The patient also reports drinking 2-3 times a week and states he has 5-6 drinks on each occasion of captain and Coke. * EKG reveals sinus tachycardia with a heart rate of 127 * Chest xray correlate for congestive heart failure and pulmonary edema, pneumonia not excluded * Laboratory data: WBC 8.1. Hemoglobin 14.2. Platelet count 405. Sodium 136. Potassium 4.0. BUN 13. Creatinine 0.91. Lactic acid 1.5. Troponin 0.042. ProBNP 2360. * Current home cardiac medications include none * Most recent echocardiogram obtained in December 2017 revealed ejection fraction 55-60%, trace MR, trace TR * Patient underwent stress test in December 2017 which was inconclusive secondary to patient's inability to change target heart rate. 07/15/2021: This patient is feeling better. Chest x-ray still shows evidence of pulmonary edema. His blood pressure is running low. Denies any chest pain. No arrhythmias noted. Renal functions are stable. I'm going to start him on by mouth Lanoxin. The etiology of cardiomyopathy is not clear. Rule out viral myocarditis. We'll may also evaluate him to rule out underlying ischemic heart disease either by cardiac catheterization or a Lexiscan stress test. A she also may need LifeVest before he leaves the hospital. Further recommendation will depend upon clinical course 07/16/2021 Patient examined this morning at the bedside. Patient denies chest pain or pressure. He reports improvement in his shortness of breath. Patients remain slightly tachycardic this morning. PHYSICAL EXAM: VITAL SIGNS: Reviewed. GENERAL: Well-developed in no acute distress. HEENT: Head is normocephalic. Pupils are equal, round. Sclerae anicteric. Mucous membranes of the mouth are moist. Neck supple. No JVD or thyromegaly LUNGS: Respirations even and unlabored. Lungs diminished to auscultation bilaterally. HEART: Regular rate and rhythm. S1 and S2 heard. ABDOMEN: Soft. Nondistended. Nontender. EXTREMITIES: Normal range of motion. No clubbing or cyanosis. Peripheral pulses intact. Trace lower extremity edema NEUROLOGIC: Awake and alert. Oriented x 3. ASSESSMENT: Acute heart failure,with reduced ejection fraction, etiology unclear cardiomyopathy, unclear if ischemic or nonischemic Sinus tachycardia ADD/ADHD Nicotine dependence Frequent alcohol use PLAN: continue current cardiac medications Will consider possible stress test versus cardiac catheterization. Patient will require a LifeVest at discharge to prevent sudden cardiac due to his cardiomyopathy Further recommendations pending patient's course Nurse practitioner note has been reviewed by physician. Signing provider agrees with the documented findings, assessment, and plan of care. Objective - Vital Signs Vital signs: Vital Signs Temp 97.8 F 07/16/21 08:00 Pulse 118 H 07/16/21 08:00 Resp 17 07/16/21 08:00 BP 104/71 07/16/21 08:00 Pulse Ox 97 07/16/21 08:00 FiO2 21 07/14/21 08:50 Intake & Output 07/15/21 07/16/21 07/16/21 18:59 06:59 18:59 Intake Total 236 240 180 Output Total 2300 525 Balance -4 -285 180 Weight 71 kg Intake: Oral 236 240 180 Output: Urine 2300 525 Other: Voiding Method Toilet Toilet Urinal Urinal # Voids 1 - Labs CBC & Chem 7: 07/16/21 08:51 07/15/21 08:49 Labs: Microbiology - Last 24 Hours (Table) 07/13/21 18:45 Blood Culture - Preliminary Blood No Growth after 48 hours 07/13/21 18:28 Blood Culture - Preliminary Blood No Growth after 48 hours
--- NOTE | 2021-07-16 14:46 | P.PN ---
Subjective Progress Note Date: 07/16/21 This is a 35-year-old male patient, coming into the hospital because of worsening shortness of breath. The patient started having some increased dyspnea cough and he was seen by his primary care physician outpatient basis and he was given a course of antibiotics and albuterol rescue inhaler. He did not improve and the patient became progressively more short of breath and he was having exertional dyspnea and orthopnea and some increase in lower activity edema. He drinks alcohol on a daily basis. He is an ex-smoker and quit smoking approximately 5 years ago. No angina. No palpitation. He has history of ADHD/ADD and the patient is demented and had an outpatient basis. No drug overdose. No active substance abuse. No history of any rheumatic fever or valvular heart disease. No congenital heart disease. No previous history of myocardial infarction. The patient came in with a white cell count of 8.1 with a hemoglobin of 14.2. Normal coagulation profile. Normal electrolytes. ProBNP level was 2360. LEVEL WAS 0.05. UA WAS SHOWING +1 PROTEIN, +2 KETONES, 4 WBCS I, AND A URINE DRUG SCREEN WAS POSITIVE FOR AMPHETAMINE. COVID 19 testing came back negative and influenza screen was also negative and the chest x-ray showed diffuse bilateral pulmonary infiltrates with a batwing appearance consistent with acute pulmonary edema. The patient currently is on Coreg 1.563 mg by mouth twice a day in addition to Lasix 40 mg IV daily basis. The patient was also started on Aldactone 12.5 mg by mouth daily and the patient was started empirically on Levaquin. The patient is currently on 2 L of oxygen by nasal cannula with a pulse ox of 97% the EKG at time of admission showed sinus tachycardia. No acute ischemic changes. 07/15/2021, the patient is comfortable on room in oxygen. The patient remains on the same treatment. Echocardiogram was completed and the patient was found to have impairment of LV function with an ejection fraction of 20-25% consistent with severe cardiomyopathy. Left ventricular cavity was at the upper size of normal. RV was normal. No evidence of any pulmonary hypertension. The patient also had moderate degree of mitral regurgitation,. No evidence of any aortic root aneurysm. As far as treatment, the patient remains on IV Lasix as the pat ient was in acute pulmonary edema the time of admission. His proBNP level was 2360. His PRO-CALCITONIN WAS LOW. A REPEAT CHEST X-RAY WAS DONE AND IS SHOWING SIGNIFICANT IMPROVEMENT IN THE PULMONARY EDEMA SEEN EARLIER ALTHOUGH IT HAS NOT COMPLETELY SUBSIDED. The patient is seen today 07/16/2021 in follow-up on the selective care unit. He is currently up ambulating in his room. Maintaining good O2 saturations in the 90s on room air. He denies any worsening shortness of breath, cough or con gestion. No chest pain. White count 6.3. Hemoglobin 14.0. Blood cultures reveal no growth. He is continued on Coreg, digoxin, Lasix and Aldactone. Lovenox for DVT prophylaxis. Objective - Vital Signs Vital signs: Vital Signs Temp 97.8 F 07/16/21 08:00 Pulse 118 H 07/16/21 08:00 Resp 17 07/16/21 08:00 BP 104/71 07/16/21 08:00 Pulse Ox 97 07/16/21 08:00 FiO2 21 07/14/21 08:50 Intake & Output 07/15/21 07/16/21 07/16/21 18:59 06:59 18:59 Intake Total 236 240 180 Output Total 2300 525 Balance -2064 -285 180 Weight 71 kg Intake: Oral 236 240 180 Output: Urine 2300 525 Other: Voiding Method Toilet Toilet Urinal Urinal # Voids 1 - Exam GENERAL: Well-developed 35-year-old male patient, and repair, in no acute distress. Head exam was generally normal. There was no scleral icterus or corneal arcus. Mucous membranes were moist. HEENT: Head is normocephalic. Pupils are equal, round. Sclerae anicteric. Mucous membranes of the mouth are moist. Neck supple. No JVD or thyromegaly LUNGS: Respirations even and unlabored. Lungs diminished to auscultation bilaterally. HEART: Regular rate and rhythm. S1 and S2 heard. The patient is a gallop rhythm and the patient has an S3 gallop and the patient is also sinus tachycardia ABDOMEN: Soft. Nondistended. Nontender. EXTREMITIES: Normal range of motion. No clubbing or cyanosis. Peripheral pulses intact. Trace lower extremity edema NEUROLOGIC: Awake and alert. Oriented x 3. Examination of the skin revealed no evidence of significant rashes, suspicious appearing nevi or other concerning lesions. - Labs CBC & Chem 7: 07/16/21 08:51 07/15/21 08:49 Labs: Microbiology - Last 24 Hours (Table) 07/13/21 18:45 Blood Culture - Preliminary Blood No Growth after 48 hours 07/13/21 18:28 Blood Culture - Preliminary Blood No Growth after 48 hours Assessment and Plan Assessment: Acute hypoxic respiratory failure currently on room air with O2 saturations in the 90s Acute shortness of breath secondary to above , improved Acute systolic heart failure with an ejection fraction of 20-25% with moderate degree of mitral regurgitation, consider viral cardiomyopathy. Ischemic cardiomyopathy with alcoholic cardiomyopathy is felt to be less likely. Acute pulmonary edema, improving acute pulmonary infiltrates, likely secondary to pulmonary edema Sinus tachycardia. This is secondary to cardiomyopathy. History of ADD/ADHD maintained on Adderall an outpatient basis Scoliosis Acid reflux Remote history of shingles Plan: The patient was seen and evaluated Stable and on room air Continue beta blockers, digoxin, diuretics Home once cleared by cardiology I have personally seen and examined the patient, performed the documentation and the assessment and plan as written. Number of minutes spent on the visit: 10. I have personally seen and examined the patient and reviewed the documentation. I performed a joint evaluation with the nurse practitioner in this evaluation was done more than 20 minutes. I fully agree with the documentation above and the plan of care.. The patient is stable. No active complaints. His CHF is being optimized. The patient is currently on Lasix and Aldactone combination of diuretics and the patient is also on Coreg and digoxin. He should be able to get a LifeVest. Outpatient follow-up with cardiology regarding his severe cardiomyopathy. His acute pulmonary edema is recovering.
--- NOTE | 2021-07-16 14:53 | P.PN ---
Subjective Progress Note Date: 07/16/21 Hospital course: Patient is a very pleasant 35-year-old male with a past medical history of ADHD. He presented to the emergency department on 07/13/21 with a chief complaint of dyspnea beginning approximately 3 weeks ago and progressively worsening. Patient received outpatient course of azithromycin but reports no improvement and only worsening of condition. Patient underwent full evaluation in the emergency department and was found to have sinus tachycardia with heart rate of 132. CBC, CMP, and troponin all negative. ProBNP was found to be elevated at 2360. Urine drug screen was positive for amphetamines in which patient is prescribed. Influenza A/B and Covid negative. Chest x-ray revealing pulmonary edema. EKG showing sinus tachycardia 127 bpm with no noted T-wave or ST abnormalities. Patient was admitted under our services with consultation to cardiology and pulmonology. Pro-calcitonin negative at 0.05. Patient has remained afebrile throughout hospitalization with normal WBCs. Levaquin was discontinued as infectious process ruled out. Echocardiogram revealing a severely impaired EF of 20-25% with a dilated left ventricle, moderate mitral regurgitation and mild pulmonary hypertension. Patient being treated with Lasix, Aldactone, and carvedilol. Physical exam: Patient seen and fully evaluated at bedside this morning. He continuous to improve. He has had 2825 mL of output over the past 24 hours. Patient reports continued dyspnea with exertion and denies shortness of breath at rest, chest pain, palpitations, or any other complaints. He remains tachycardic but heart rate improving to 110s (was maintaining and 120s yesterday). Cardiology fo llowing and are considering stress test versus cardiac catheterization and reporting Patient will require a LifeVest upon discharge to prevent sudden cardiac secondary to his severe cardiomyopathy. At this time patient to continue Coreg, Lasix, and Aldactone. Patient was also started on digoxin by cardiology this morning. Vital signs reviewed and stable. General: Nontoxic, no distress and appears stated age. Derm: Skin warm and dry, normal coloration for ethnicity. Head: Atraumatic, normocephalic and symmetric. Eyes: EOMs intact, no lid lag, and anicteric sclera Mouth: no lip lesions, mucus membranes moist Cardiovascular: Tachycardic rate and regular rhythm with normal S1S2, no murmur, positive posterior tibial pulses bilaterally, and cap refill < 2 seconds. Lungs: Respirations even, regular, and unlabored on room air with SpO2 of 97%. Lungs diffusely diminished but does have improved airflow , No rhonchi, no rales, no wheezing, and no accessory muscle usage. Abdominal: soft, nontender to palpation, no guarding, no appreciable organomegaly Ext: ROM intact. No gross muscle atrophy, no edema, no contractures Neuro: Speech clear, face symmetrical and CN II-XII grossly intact with no noted focal neuro deficits Psych: Alert and oriented to person, place, time, and situation. Appropriate and pleasant affect. Assessment and Plan of Care: Decompensated systolic heart failure with EF of 20-25% Cardiomyopathy, it is unclear if ischemic or nonischemic Acute respiratory failure with hypoxia, secondary to acute decompensated heart failure Sinus tachycardia ADHD -Cardiology following, reports considering stress test versus cardiac catheterization and states patient will require a LifeVest at discharge to prevent sudden cardiac due to his cardiomyopathy. -Telemetry monitoring -Pulmonology following -Cardiac diet -Continue Coreg, Lasix, and Aldactone - Echocardiogram revealing a severely impaired EF of 20-25% with a dilated left ventricle, moderate mitral regurgitation and mild pulmonary hypertension -Close monitoring of I's and O's while diuresing, 3620 mL of output over the past 24 hours -Pro-calcitonin negative, Covid PCR negative, influenza A/B negative. Urine Legionella negative. -Continuation of duo nebs as needed for wheezing/shortness of breath. -IV antibiotic with Levaquin discontinued, pneumonia ruled out acute respiratory failure with hypoxia secondary to acute systolic decompensated heart failure. -Discontinue Adderall, unclear reasoning for decompensated systolic heart failure and cardiomyopathy and amphetamines have been known to cause. This was discussed with patient as he will not be able to resume Adderall upon discharge. CODE STATUS: Full code DVT prophylaxis: Lovenox Discussed with: Patient and RN Anticipated discharge date: Clinical course to determine Anticipated discharge place: Home A total of 33 minutes was spent on the care of this complex patient more than 50% of the time was spent in counseling and care coordination. I reviewed the documentation as provided by the ANGELICA above, who is the original author of this note. I agree with the documented assessment and plan, with the following changes: none Objective - Vital Signs Vital signs: Vital Signs Temp 97.8 F 07/16/21 03:59 Pulse 113 H 07/16/21 03:59 Resp 18 07/16/21 03:59 BP 93/65 07/16/21 03:59 Pulse Ox 95 07/16/21 03:59 FiO2 21 07/14/21 08:50 Intake & Output 07/15/21 07/16/21 07/16/21 18:59 06:59 18:59 Intake Total 236 240 Output Total 2300 525 Balance -2063 Weight 71 kg Intake: Oral 236 240 Output: Urine 2300 525 Other: Voiding Method Toilet Toilet Urinal Urinal # Voids 1 - Labs CBC & Chem 7: 07/16/21 08:51 07/16/21 08:51 Labs: Abnormal Lab Results - Last 24 Hours (Table) 07/15/21 07/15/21 Range/Units 08:49 08:49 RBC 4.29 L (4.30-5.90) m/uL Glucose 143 H (74-99) mg/dL Total Protein 5.8 L (6.3-8.2) g/dL Albumin 3.1 L (3.5-5.0) g/dL Microbiology - Last 24 Hours (Table) 07/13/21 18:45 Blood Culture - Preliminary Blood No Growth after 48 hours 07/13/21 18:28 Blood Culture - Preliminary Blood No Growth after 48 hours
[2021-07-16] MEDS ORDERED: DIGOXIN 250 MCG TAB PO ONE (18:00)
[2021-07-17] MEDS: DIGOXIN 250 MCG TAB PO SCH (10:12)
[2021-07-17] MEDS: ENOXAPARIN 40 MG/0.4 ML SYRINGE SQ SCH (10:12)
[2021-07-17] MEDS: SPIRONOLACTONE 25 MG TAB PO SCH (10:12)
[2021-07-17] MEDS: FUROSEMIDE 40 MG TAB PO SCH (10:12)
--- NOTE | 2021-07-17 10:32 | P.PN ---
Subjective Progress Note Date: 07/17/21 HISTORY OF PRESENT ILLNESS: This is a 35-year-old male with a past medical history significant for ADD/ADHD and nicotine dependence. 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 We have been asked to see the patient in consultation for possible heart failure. Patient examined at the bedside. Patient states he started coughing about a month ago. He states he was seen by his primary care physician and started on antibiotics and then albuterol. The patient states recently he has been feeling short of breath with minimal exertion and having some lower extremity edema. He denies any chest pain or pressure. Denies dizziness or lightheadedness. The patient is a current cigarette smoker and smokes approximately one pack per day. The patient also reports drinking 2-3 times a week and states he has 5-6 drinks on each occasion of captain and Coke. * EKG reveals sinus tachycardia with a heart rate of 127 * Chest xray correlate for congestive heart failure and pulmonary edema, pneumonia not excluded * Laboratory data: WBC 8.1. Hemoglobin 14.2. Platelet count 405. Sodium 136. Potassium 4.0. BUN 13. Creatinine 0.91. Lactic acid 1.5. Troponin 0.042. ProBNP 2360. * Current home cardiac medications include none * Most recent echocardiogram obtained in December 2017 revealed ejection fraction 55-60%, trace MR, trace TR * Patient underwent stress test in December 2017 which was inconclusive secondary to patient's inability to change target heart rate. 07/15/2021: This patient is feeling better. Chest x-ray still shows evidence of pulmonary edema. His blood pressure is running low. Denies any chest pain. No arrhythmias noted. Renal functions are stable. I'm going to start him on by mouth Lanoxin. The etiology of cardiomyopathy is not clear. Rule out viral myocarditis. We'll may also evaluate him to rule out underlying ischemic heart disease either by cardiac catheterization or a Lexiscan stress test. A she also may need LifeVest before he leaves the hospital. Further recommendation will depend upon clinical course 07/16/2021 Patient examined this morning at the bedside. Patient denies chest pain or pressure. He reports improvement in his shortness of breath. Patients remain slightly tachycardic this morning. 07/17/2021 Patient examined this morning at the bedside. Patient denies chest pain or pressure. He denies shortness of breath. Blood pressure 93/66. Heart rate has improved since yesterday. PHYSICAL EXAM: VITAL SIGNS: Reviewed. GENERAL: Well-developed in no acute distress. HEENT: Head is normocephalic. Pupils are equal, round. Sclerae anicteric. Mucous membranes of the mouth are moist. Neck supple. No JVD or thyromegaly LUNGS: Respirations even and unlabored. Lungs diminished to auscultation bilaterally. HEART: Regular rate and rhythm. S1 and S2 heard. ABDOMEN: Soft. Nondistended. Nontender. EXTREMITIES: Normal range of motion. No clubbing or cyanosis. Peripheral puls es intact. Trace lower extremity edema NEUROLOGIC: Awake and alert. Oriented x 3. ASSESSMENT: Acute heart failure,with reduced ejection fraction, etiology unclear cardiomyopathy, unclear if ischemic or nonischemic Sinus tachycardia ADD/ADHD Nicotine dependence Frequent alcohol use PLAN: Continue current cardiac medications Add aspirin 81mg daily Obtain lipid panel. If abnormal will add statin therapy. Patient would benefit from JUANA/ARB when blood pressure able to tolerate. Will reevaluate outpatient Likely outpatient stress test versus cardiac cath. Patient will require a LifeVest at discharge to prevent sudden cardiac due to his cardiomyopathy Patient may be discharged home today from a cardiac standpoint Nurse practitioner note has been reviewed by physician. Signing provider agrees with the documented findings, assessment, and plan of care. Objective - Vital Signs Vital signs: Vital Signs Temp 98.3 F 07/17/21 04:00 Pulse 103 H 07/17/21 04:00 Resp 16 07/17/21 04:00 BP 93/66 07/17/21 04:00 Pulse Ox 99 07/17/21 00:00 FiO2 21 07/14/21 08:50 Intake & Output 07/16/21 07/17/21 07/17/21 18:59 06:59 18:59 Intake Total 360 240 Output Total 900 250 Balance -540 -10 Intake: Oral 360 240 Output: Urine 900 250 Other: Voiding Method Toilet Urinal # Voids 2 - Labs CBC & Chem 7: 07/16/21 08:51 07/16/21 08:51 Labs: Abnormal Lab Results - Last 24 Hours (Table) 07/16/21 Range/Units 08:51 Total Protein 6.1 L (6.3-8.2) g/dL Albumin 3.3 L (3.5-5.0) g/dL Microbiology - Last 24 Hours (Table) 07/13/21 18:45 Blood Culture - Preliminary Blood No Growth after 72 hours 07/13/21 18:28 Blood Culture - Preliminary Blood No Growth after 72 hours
--- NOTE | 2021-07-17 14:26 | P.PN ---
Subjective Progress Note Date: 07/17/21 Hospital course: Patient is a very pleasant 35-year-old male with a past medical history of ADHD. He presented to the emergency department on 07/13/21 with a chief complaint of dyspnea beginning approximately 3 weeks ago and progressively worsening. Patient received outpatient course of azithromycin but reports no improvement and only worsening of condition. Patient underwent full evaluation in the emergency department and was found to have sinus tachycardia with heart rate of 132. CBC, CMP, and troponin all negative. ProBNP was found to be elevated at 2360. Urine drug screen was positive for amphetamines in which patient is prescribed. Influenza A/B and Covid negative. Chest x-ray revealing pulmonary edema. EKG showing sinus tachycardia 127 bpm with no noted T-wave or ST abnormalities. Patient was admitted under our services with consultation to cardiology and pulmonology. Pro-calcitonin negative at 0.05. Patient has remained afebrile throughout hospitalization with normal WBCs. Levaquin was discontinued as infectious process ruled out. Echocardiogram was completed revealing a severely impaired EF of 20-25% with a dilated left ventricle, moderate mitral regurgitation and mild pulmonary hypertension. Patient being treated with Digoxin, Lasix, Aldactone, and carvedilol. Physical exam: Patient seen and fully evaluated at bedside this morning. Patient appears comfortable. Denied any chest pain, shortness of breath, palpitations or any other complaints. Heart rate improved down to 103 this morning. BP stable at 93/66. Patient awaiting delivery of LifeVest and then plans for discharge home and following up outpatient with cardiology. ` Vital signs reviewed and stable. General: Nontoxic, no distress and appears stated age. Derm: Skin warm and dry, normal coloration for ethnicity. Head: Atraumatic, normocephalic and symmetric. Eyes: EOMs intact, no lid lag, and anicteric sclera Mouth: no lip lesions, mucus membranes moist Cardiovascular: Tachycardic rate and regular rhythm with normal S1S2, no murmur, positive posterior tibial pulses bilaterally, and cap refill < 2 seconds. Lungs: Respirations even, regular, and unlabored on room air with SpO2 of 97%. Lungs diffusely diminished but does have improved airflow , No rhonchi, no rales, no wheezing, and no accessory muscle usage. Abdominal: soft, nontender to palpation, no guarding, no appreciable organomegaly Ext: ROM intact. No gross muscle atrophy, no edema, no contractures Neuro: Speech clear, face symmetrical and CN II-XII grossly intact with no noted focal neuro deficits Psych: Alert and oriented to person, place, time, and situation. Appropriate and pleasant affect. Assessment and Plan of Care: Decompensated systolic heart failure with EF of 20-25% Cardiomyopathy, it is unclear if ischemic or nonischemic Acute respiratory failure with hypoxia, secondary to acute decompensated heart failure Sinus tachycardia ADHD -Cardiology following, recommending LifeVest at discharge to prevent sudden cardiac due to his cardiomyopathy. -Telemetry monitoring -Pulmonology following -Cardiac diet -Continue Digoxin, Coreg, Lasix, and Aldactone -Echocardiogram revealing a severely impaired EF of 20-25% with a dilated left ventricle, moderate mitral regurgitation and mild pulmonary hypertension -Close monitoring of I's and O's while diuresing -Pro-calcitonin negative, Covid PCR negative, influenza A/B negative. Urine Legionella negative. -Discontinued Adderall, unclear reasoning for decompensated systolic heart failure and cardiomyopathy and amphetamines have been known to cause. This was discussed with patient as he will not be able to resume Adderall upon discharge. CODE STATUS: Full code DVT prophylaxis: Lovenox Discussed with: Patient and RN Anticipated discharge date: Later today versus tomorrow morning pending delivery of LifeVest Anticipated discharge place: Home A total of 31 minutes was spent on the care of this complex patient more than 50% of the time was spent in counseling and care coordination. I reviewed the documentation as provided by the ANGELICA above, who is the original author of this note. I agree with the documented assessment and plan, with the following changes: None Objective - Vital Signs Vital signs: Vital Signs Temp 98.3 F 07/17/21 04:00 Pulse 103 H 07/17/21 04:00 Resp 16 07/17/21 04:00 BP 93/66 07/17/21 04:00 Pulse Ox 99 07/17/21 00:00 FiO2 21 07/14/21 08:50 Intake & Output 07/16/21 07/17/21 07/17/21 18:59 06:59 18:59 Intake Total 360 240 Output Total 900 250 Balance -540 -10 Intake: Oral 360 240 Output: Urine 900 250 Other: Voiding Method Toilet Urinal # Voids 2 - Labs CBC & Chem 7: 07/16/21 08:51 07/16/21 08:51 Labs: Abnormal Lab Results - Last 24 Hours (Table) 07/16/21 Range/Units 08:51 Total Protein 6.1 L (6.3-8.2) g/dL Albumin 3.3 L (3.5-5.0) g/dL Microbiology - Last 24 Hours (Table) 07/13/21 18:45 Blood Culture - Preliminary Blood No Growth after 72 hours 07/13/21 18:28 Blood Culture - Preliminary Blood No Growth after 72 hours
[2021-07-17 20:45] LABS: Chol/HDL Ratio 4.58 Ratio; LDL Cholesterol,Calculated 85.7 mg/dL (0.0-131.0)
[2021-07-17 23:55] VITALS: RESP 16
[2021-07-18 05:02] VITALS: TEMP 98.2
[2021-07-18] MEDS ORDERED: ASPIRIN 81 MG PO SCH (09:00)
[2021-07-18] MEDS: DIGOXIN 250 MCG TAB PO SCH (09:18)
[2021-07-18] MEDS: SPIRONOLACTONE 25 MG TAB PO SCH (09:19)
[2021-07-18] MEDS: ENOXAPARIN 40 MG/0.4 ML SYRINGE SQ SCH (09:19)
[2021-07-18] MEDS: FUROSEMIDE 40 MG TAB PO SCH (09:19)
[2021-07-18 09:24] VITALS: BP 93/53; PULSE 109
--- NOTE | 2021-07-18 13:39 | P.DS ---
Providers Date of admission: 07/13/21 19:43 Expected date of discharge: 07/18/21 Attending physician: Sekou Crump MD Consults: 07/13/21 19:43 Consult Physician Routine Consulting Provider: Wendy Gamble Consult Reason/Comments: eval for probable atypical pneumonia Do you want consulting provider notified?: Yes 07/13/21 19:54 Consult Physician Urgent Consulting Provider: Raj Lindsey Consult Reason/Comments: eval for heart failure Do you want consulting provider notified?: Yes Primary care physician: Saskia Singh MD Hospital Course: Discharge Diagnosis: Decompensated acute systolic heart failure with EF of 20-25%, unclear etiology. Patient discharged home with LifeVest and cardiac medication regimen consisting of spironolactone, aspirin, carvedilol, digoxin, and furosemide. Patient to follow up outpatient with PCP in 1-2 days and with cardiology in 1 week. Patient instructed to wear LifeVest at all times except when showering. Cardiology reports will likely require a outpatient stress test versus cardiac cath, will be discussed further at outpatient follow-up appointment. Cardiomyopathy, it is unclear if ischemic or nonischemic. Acute respiratory failure with hypoxia, secondary to acute decompensated heart failure. Sinus tachycardia ADHD. Discontinued Adderall, unclear reasoning for decompensated systolic heart failure and cardiomyopathy and amphetamines have been known to cause. This was discussed with patient as he will not be able to resume Adderall upon discharge. Hospital Course: Patient is a very pleasant 35-year-old male with a past medical history of ADHD. He presented to the emergency department on 07/13/21 with a chief complaint of dyspnea beginning approximately 3 weeks ago and progressively worsening. Patient received outpatient course of azithromycin but reports no improvement and only worsening of condition. Patient underwent full evaluation in the emergency department and was found to have sinus tachycardia with heart rate of 132. CBC, CMP, and troponin all negative. ProBNP was found to be elevated at 2360. Urine drug screen was positive for amphetamines in which patient is prescribed. Influenza A/B and Covid negative. Chest x-ray revealing pulmonary edema. EKG showing sinus tachycardia 127 bpm with no noted T-wave or ST abnormalities. Patient was admitted under our services with consultation to cardiology and pulmonology. Pro-calcitonin negative at 0.05. Patient has remained afebrile throughout hospitalization with normal WBCs. Levaquin was discontinued as infectious process ruled out. Echocardiogram was completed revealing a severely impaired EF of 20-25% with a dilated left ventricle, moderate mitral regurgitation and mild pulmonary hypertension. Patient being treated with Digoxin, Lasix, Aldactone, and carvedilol. Patient provided with LifeVest and underwent education on its use. Patient instructed it is of utmost importance to wear LifeVest at all times to prevent sudden cardiac secondary to his severe cardiomyopathy. Patient verbalizes understanding of LifeVest and its use and denies having any questions or concerns at this time. Patient has been cleared by cardiology for outpatient follow-up in their office in one week. Medically patient is stable and free from any complaints including dizziness/lightheadedness, chest pain, shortness of breath, dyspnea with exertion, palpitations, or experiencing any numbness/tingling/weakness/swelling in his extremities. Patient being discharged home on new cardiac medication regimen including spironolactone, aspirin, carvedilol, digoxin, and furosemide. Adderall was discontinued secondary to unclear reasoning for decompensated systolic heart failure and cardiomyopathy and amphetamines have been known to cause. Patient discharged home at this time. Physical exam: Vital signs reviewed and stable. General: Nontoxic, no distress and appears stated age. Derm: Skin warm and dry, normal coloration for ethnicity. Head: Atraumatic, normocephalic and symmetric. Eyes: EOMs intact, no lid lag, and anicteric sclera Mouth: no lip lesions, mucus membranes moist Cardiovascular: Tachycardic rate and regular rhythm with normal S1S2, no murmur, positive posterior tibial pulses bilaterally, and cap refill < 2 seconds. Lungs: Respirations even, regular, and unlabored on room air with SpO2 of 97%. Lungs diffusely diminished but does have improved airflow , No rhonchi, no rales, no wheezing, and no accessory muscle usage. Abdominal: soft, nontender to palpation, no guarding, no appreciable organomegaly Ext: ROM intact. No gross muscle atrophy, no edema, no contractures Neuro: Speech clear, face symmetrical and CN II-XII grossly intact with no noted focal neuro deficits Psych: Alert and oriented to person, place, time, and situation. Appropriate and pleasant affect. A total of 38 minutes of time were spent preparing this complex discharge summary. Pt was discharged on 07/18/21 11:29 AM I reviewed the documentation as provided by the ANGELICA above, who is the original author of this note. I agree with the documented assessment and plan, with the following changes: None Patient Condition at Discharge: Stable Plan - Discharge Summary New Discharge Prescriptions: New Spironolactone [Aldactone] 12.5 mg PO DAILY 60 Days #30 tab Aspirin 81 mg PO DAILY 60 Days #60 tab carvediloL [Coreg] 1.563 mg PO BID-W/MEALS 60 Days #120 tab Digoxin [Lanoxin] 125 mcg PO DAILY 60 Days #30 tab Furosemide [Lasix] 40 mg PO DAILY 60 Days #60 tab Continue Albuterol Sulfate [Albuterol Sulfate Hfa] 2 puff PO RT-Q6H PRN PRN Reason: Shortness Of Breath Discontinued Dextroamphetamine/Amphetamine [Adderall] 30 mg PO BID Discharge Medication List Albuterol Sulfate [Albuterol Sulfate Hfa] 2 puff PO RT-Q6H PRN 07/13/21 [History] Aspirin 81 mg PO DAILY 60 Days #60 tab 07/18/21 [Rx] Digoxin [Lanoxin] 125 mcg PO DAILY 60 Days #30 tab 07/18/21 [Rx] Furosemide [Lasix] 40 mg PO DAILY 60 Days #60 tab 07/18/21 [Rx] Spironolactone [Aldactone] 12.5 mg PO DAILY 60 Days #30 tab 07/18/21 [Rx] carvediloL [Coreg] 1.563 mg PO BID-W/MEALS 60 Days #120 tab 07/18/21 [Rx] Follow up Appointment(s)/Referral(s): Saskia Singh MD [Primary Care Provider] - 1-2 days Gadiel Gonzales MD [STAFF PHYSICIAN] - 1 Week Patient Instructions/Handouts: Heart Failure (DC) Activity/Diet/Wound Care/Special Instructions: Activity: As tolerated. Take breaks as needed. Diet: Heart healthy and carb consistent diet. Avoid salts, or foods with hidden salts such as canned or boxed foods and frozen dinners. Extra salt makes your heart work harder and traps the fluid in your body for longer. Special Instructions: Weigh yourself every morning after you urinate. If you gain 3 pounds overnight or more than 5 pounds in one week, call your primary physician and lathmaker for guidance on your medications or they may want to see you in their office. Keep a daily log of your weights and be sure to bring with you at follow up visits with your PCP and lathmaker. Take all of your medications as directed, especially your water pills. NEVER skip a dose. And remember to keep all of your doctor's appointments and follow- up as needed. Call your primary care provider and lathmaker if you notice any extra swelling in your legs, ankles, feet or abdomen, if you have a new dry cough, if your shortness of breath worsens with activity or at rest, or if you feel more fatigued. Life Vest can be contacted at [phone] if you have any questions. It is important to wear LifeVest at all times except when showering. Please refer to instructional packet provided to you. Discontinued Adderall, unclear reasoning for decompensated systolic heart failure and cardiomyopathy and amphetamines have been known to cause. This was discussed with patient as he will not be able to resume Adderall upon discharge and he was advised against the use of any and all amphetamines in the future. Thank you for allowing us to participate in your care, it was truly a pleasure having you for our patient!!! Discharge Disposition: HOME SELF-CARE
== END 2021-07-18 13:20 | disposition home or self-care (01) | DRG 291 ==
LOC: EC 17:19 → 4SSUR 19:43 → 3SCARD 21:02
PROVIDERS: ADMIT Internal Medicine; ATTEND Internal Medicine
DX: I50.23 Acute on chronic systolic (congestive) heart failure (principal); J96.01 Acute respiratory failure with hypoxia; I42.8 Other cardiomyopathies; F03.90 Unspecified dementia, unspecified severity, without behavioral disturbance, psychotic disturbance, mood disturbance, and anxiety; R00.1 Bradycardia, unspecified; Z20.822 Contact with and (suspected) exposure to COVID-19; F15.90 Other stimulant use, unspecified, uncomplicated; I08.1 Rheumatic disorders of both mitral and tricuspid valves; F17.210 Nicotine dependence, cigarettes, uncomplicated; R00.0 Tachycardia, unspecified; F90.9 Attention-deficit hyperactivity disorder, unspecified type; I27.20 Pulmonary hypertension, unspecified; K21.9 Gastro-esophageal reflux disease without esophagitis; M41.9 Scoliosis, unspecified; Z79.899 Other long term (current) drug therapy; Z82.49 Family history of ischemic heart disease and other diseases of the circulatory system; Z82.5 Family history of asthma and other chronic lower respiratory diseases; Z82.62 Family history of osteoporosis; Z83.3 Family history of diabetes mellitus; Z86.19 Personal history of other infectious and parasitic diseases; Z87.19 Personal history of other diseases of the digestive system; B02.9 Zoster without complications
CPT/HCPCS: 36415; 71045; 71046; 80048; 80053; 80061; 80306; 81001; 83605; 83735; 83880; 84145; 84443; 84484; 85025; 85027; 85610; 85730; 87040; 87449; 87502; 87635; 93005; 93306; 94640; 94760; 96361; 96365; 96366; 96375; 99285

== ENCOUNTER → 2021-07-13 | Outpatient (CLI) | payer BC | END | disposition home or self-care (01) | LOC: LABMAIN 17:01 | PROVIDERS: ATTEND Physician Assistant Medical | DX: Z53.9 Procedure and treatment not carried out, unspecified reason (principal) ==

== ENCOUNTER 2021-07-22 18:57 | Emergency (ER) | payer BC ==
[2021-07-22 20:36] VITALS: BP 114/78; PULSE 103; RESP 18; TEMP 98.1
[2021-07-22 20:54] LABS: Appearance,Urine Clear (Clear); Bilirubin,Urine Negative (Negative); Blood,Urine Large (Negative); Color,Urine Colorless; Glucose,Urine (UA) Negative (Negative); Ketones,Urine Negative (Negative); Leukocyte Esterase,Urine Negative (Negative); Mucus,Urine Rare /hpf; Nitrite,Urine Negative (Negative); Protein,Urine Negative (Negative); RBC,Urine 105 /hpf (0-5); Specific Gravity,Urine 1.007 (1.001-1.035); Urobilinogen,Urine <2.0 mg/dL (<2.0)
--- NOTE | 2021-07-22 23:38 | ED ---
Male Urogenital HPI - General Chief complaint: Urogenital Stated complaint: defib vest x1wk/urinating blood Time Seen by Provider: 07/22/21 23:17 Source: patient Mode of arrival: ambulatory Limitations: no limitations - History of Present Illness Initial comments: This is a pleasant 35-year-old male who presents to the emergency department com plaining of hematuria. Patient denying any pain. Patient recently passed a kidney stone and states he had hematuria at that time. However states that totally resolved. Patient also was admitted last week for suspected COVID-19 with subsequent cardiac issues. Patient was actually diagnosed with pneumonia and congestive heart failure. Patient was sent home on diuretics to include furosemide, spironolactone, patient also on carvedilol, digoxin, and 81 mg aspirin. Patient denies any other anticoagulation. Patient denies any other bleeding sites. No testicular pain. No penile pain. No penile discharge. No abdominal pain. Patient is wearing a defibrillator vest. No headache, no fever or chills, no changes in vision or hearing, no sore throat or difficulty with speech, no neck pain, no chest pain or shortness of breath, no abdominal pain, no nausea or vomiting, no changes in bowel movements, no numbness or tingling, no extremity pain, no skin rashes or lesions. - Related Data Home Medications Medication Instructions Recorded Confirmed Albuterol Sulfate [Albuterol 2 puff PO RT-Q6H PRN 07/13/21 07/13/21 Sulfate Hfa] Previous Rx's Medication Instructions Recorded Aspirin 81 mg PO DAILY 60 Days #60 tab 07/18/21 Digoxin [Lanoxin] 125 mcg PO DAILY 60 Days #30 tab 07/18/21 Furosemide [Lasix] 40 mg PO DAILY 60 Days #60 tab 07/18/21 Spironolactone [Aldactone] 12.5 mg PO DAILY 60 Days #30 tab 07/18/21 carvediloL [Coreg] 1.563 mg PO BID-W/MEALS 60 Days 07/18/21 #120 tab Allergies Allergy/AdvReac Type Severity Reaction Status Date / Time No Known Allergies Allergy Verified 07/22/21 20:36 Review of Systems ROS Statement: Those systems with pertinent positive or pertinent negative responses have been documented in the HPI. ROS Other: All systems not noted in ROS Statement are negative. Past Medical History Past Medical History: Heart Failure Additional Past Medical History / Comment(s): 12-29-17 pt wants both flu and pne vaccine this admit. concussion few weeks ago( while changing a tire- accidently was hit in head with a metal pipe) ,add/adhd,scoliosis."heartburn", shingles 2007, History of Any Multi-Drug Resistant Organisms: None Reported Past Surgical History: Hernia Repair Additional Past Surgical History / Comment(s): rt inguinal hernia repair, rt hand repair after a drill went thru it. Past Anesthesia/Blood Transfusion Reactions: Motion Sickness Additional Past Anesthesia/Blood Transfusion Reaction / Comment(s): past "sea sickness" Past Psychological History: ADD/ADHD Smoking Status: Former smoker Past Alcohol Use History: None Reported Past Drug Use History: None Reported - Past Family History Father Family Medical History: COPD, Coronary Artery Disease (CAD), Diabetes Mellitus Mother Family Medical History: Hypertension, Sleep Apnea/CPAP/BIPAP Additional Family Medical History / Comment(s): osteoporosis, fatty liver General Exam Limitations: no limitations General appearance: alert, in no apparent distress Head exam: Present: atraumatic, normocephalic, normal inspection Eye exam: Present: normal appearance, PERRL, EOMI. Absent: scleral icterus, conjunctival injection, periorbital swelling ENT exam: Present: normal exam, mucous membranes moist Neck exam: Present: normal inspection. Absent: tenderness, meningismus, lymphadenopathy Respiratory exam: Present: normal lung sounds bilaterally. Absent: respiratory distress, wheezes, rales, rhonchi, stridor Cardiovascular Exam: Present: regular rate, normal rhythm, normal heart sounds. Absent: systolic murmur, diastolic murmur, rubs, gallop, clicks GI/Abdominal exam: Present: soft, normal bowel sounds. Absent: distended, tende rness, guarding, rebound, rigid exam: Present: normal inspection, vertical testicular lie, circumcision. Absent: testicular tenderness, urethral discharge, scrotal swelling Extremities exam: Present: normal inspection, full ROM, normal capillary refill. Absent: tenderness, pedal edema, joint swelling, calf tenderness Back exam: Present: normal inspection Neurological exam: Present: alert, oriented X3, CN II-XII intact Psychiatric exam: Present: normal affect, normal mood Skin exam: Present: warm, dry, intact, normal color. Absent: rash Course Vital Signs 07/22/21 20:34 Temperature 98.1 F Pulse Rate 103 H Respiratory 18 Rate Blood Pressure 114/78 O2 Sat by Pulse 96 Oximetry - Reevaluation(s) Reevaluation #1: 07/23/21 01:12 Medical record is reviewed Symptoms are improved here in the emergency department Patient is informed of results and questions answered Patient in no distress Patient is asymptomatic Medical Decision Making - Lab Data Result diagrams: 07/23/21 00:37 07/23/21 00:37 Lab Results 07/22/21 07/23/21 07/23/21 Range/Units 20:43 00:37 00:37 WBC 6.1 (3.8-10.6) k/uL RBC 4.81 (4.30-5.90) m/uL Hgb 15.0 (13.0-17.5) gm/dL Hct 46.6 (39.0-53.0) % MCV 96.8 (80.0-100.0) fL MCH 31.2 (25.0-35.0) pg MCHC 32.2 (31.0-37.0) g/dL RDW 11.5 (11.5-15.5) % Plt Count 371 (150-450) k/uL MPV 8.2 Neutrophils % 46 % Lymphocytes % 38 % Monocytes % 7 % Eosinophils % 4 % Basophils % 2 % Neutrophils # 2.8 (1.3-7.7) k/uL Lymphocytes # 2.4 (1.0-4.8) k/uL Monocytes # 0.5 (0-1.0) k/uL Eosinophils # 0.3 (0-0.7) k/uL Basophils # 0.1 (0-0.2) k/uL PT (9.0-12.0) sec INR (<1.2) APTT (22.0-30.0) sec Sodium 137 (137-145) mmol/L Potassium 4.0 (3.5-5.1) mmol/L Chloride 103 (98-107) mmol/L Carbon Dioxide 25 (22-30) mmol/L Anion Gap 9 mmol/L BUN 23 H (9-20) mg/dL Creatinine 0.80 (0.66-1.25) mg/dL Est GFR (CKD-EPI)AfAm >90 (>60 ml/min/1.73 sqM) Est GFR (CKD-EPI)NonAf >90 (>60 ml/min/1.73 sqM) Glucose 155 H (74-99) mg/dL Calcium 8.9 (8.4-10.2) mg/dL Total Bilirubin 0.2 (0.2-1.3) mg/dL AST 41 (17-59) U/L ALT 52 H (4-49) U/L Alkaline Phosphatase 83 (38-126) U/L Total Protein 7.4 (6.3-8.2) g/dL Albumin 4.5 (3.5-5.0) g/dL Urine Color Colorless Urine Appearance Clear (Clear) Urine pH 5.0 (5.0-8.0) Ur Specific [place] 1.007 (1.001-1.035) Urine Protein Negative (Negative) Urine Glucose (UA) Negative (Negative) Urine Ketones Negative (Negative) Urine Blood Large H (Negative) Urine Nitrite Negative (Negative) Urine Bilirubin Negative (Negative) Urine Urobilinogen <2.0 (<2.0) mg/dL Ur Leukocyte Esterase Negative (Negative) Urine RBC 105 H (0-5) /hpf Urine Mucus Rare H (None) /hpf 07/23/21 Range/Units 00:37 WBC (3.8-10.6) k/uL RBC (4.30-5.90) m/uL Hgb (13.0-17.5) gm/dL Hct (39.0-53.0) % MCV (80.0-100.0) fL MCH (25.0-35.0) pg MCHC (31.0-37.0) g/dL RDW (11.5-15.5) % Plt Count (150-450) k/uL MPV Neutrophils % % Lymphocytes % % Monocytes % % Eosinophils % % Basophils % % Neutrophils # (1.3-7.7) k/uL Lymphocytes # (1.0-4.8) k/uL Monocytes # (0-1.0) k/uL Eosinophils # (0-0.7) k/uL Basophils # (0-0.2) k/uL PT 10.9 (9.0-12.0) sec INR 1.0 (<1.2) APTT 25.5 (22.0-30.0) sec Sodium (137-145) mmol/L Potassium (3.5-5.1) mmol/L Chloride (98-107) mmol/L Carbon Dioxide (22-30) mmol/L Anion Gap mmol/L BUN (9-20) mg/dL Creatinine (0.66-1.25) mg/dL Est GFR (CKD-EPI)AfAm (>60 ml/min/1.73 sqM) Est GFR (CKD-EPI)NonAf (>60 ml/min/1.73 sqM) Glucose (74-99) mg/dL Calcium (8.4-10.2) mg/dL Total Bilirubin (0.2-1.3) mg/dL AST (17-59) U/L ALT (4-49) U/L Alkaline Phosphatase (38-126) U/L Total Protein (6.3-8.2) g/dL Albumin (3.5-5.0) g/dL Urine Color Urine Appearance (Clear) Urine pH (5.0-8.0) Ur Specific [place] (1.001-1.035) Urine Protein (Negative) Urine Glucose (UA) (Negative) Urine Ketones (Negative) Urine Blood (Negative) Urine Nitrite (Negative) Urine Bilirubin (Negative) Urine Urobilinogen (<2.0) mg/dL Ur Leukocyte Esterase (Negative) Urine RBC (0-5) /hpf Urine Mucus (None) /hpf Disposition Clinical Impression: Hematuria Disposition: HOME SELF-CARE Condition: Good Instructions (If sedation given, give patient instructions): Hematuria (ED) Additional Instructions: Make sure you call the urologist office a ADM tomorrow morning to schedule the appointment. Follow-up with your regular physician as directed. Return to the ER immediately if any symptoms worsen, new symptoms arise, or any other problems develop. Is patient prescribed a controlled substance at d/c from ED?: No Referrals: Saskia Singh MD [Primary Care Provider] - 07/28/21 Quinten Ross MD [STAFF PHYSICIAN] - As Soon As Possible Time of Disposition: 01:14
--- NOTE | 2021-07-23 00:44 | US ---
EXAMINATION TYPE: US kidneys/renal and bladder DATE OF EXAM: 07/23/2021 COMPARISON: NONE CLINICAL HISTORY: Hematuria. Hx kidney stones; hematuria EXAM MEASUREMENTS: Right Kidney: 9.0 x 6.0 x 5.4 cm Left Kidney: 9.2 x 5.3 x 5.4 cm Right Kidney: No hydronephrosis or masses seen Left Kidney: No hydronephrosis or masses seen Bladder: wnl IMPRESSION: Negative retroperitoneal sonogram exam. No evidence of renal mass or obstruction. No evidence of a bl adder mass.
[2021-07-23 00:55] LABS: Basophils # (A) 0.1 k/uL (0-0.2); Basophils % (A) 2 %; Eosinophils # (A) 0.3 k/uL (0-0.7); Eosinophils % (A) 4 %; HCT 46.6 % (39.0-53.0); Lymphocytes # (A) 2.4 k/uL (1.0-4.8); Lymphocytes % (A) 38 %; MCH 31.2 pg (25.0-35.0); MCHC 32.2 g/dL (31.0-37.0); MCV 96.8 fL (80.0-100.0); Mean Platelet Volume 8.2; Monocytes # (A) 0.5 k/uL (0-1.0); Monocytes % (A) 7 %; Neutrophils # (A) 2.8 k/uL (1.3-7.7); Neutrophils % (A) 46 %; Platelet Count 371 k/uL (150-450); RBC 4.81 m/uL (4.30-5.90); RDW 11.5 % (11.5-15.5); WBC 6.1 k/uL (3.8-10.6)
[2021-07-23 01:05] LABS: ALT 52 U/L (4-49); AST 41 U/L (17-59); African American GFR (CKD) >90 (>60 ml/min/1.73 sqM); Albumin 4.5 g/dL (3.5-5.0); Alkaline Phosphatase 83 U/L (38-126); Anion Gap 9 mmol/L; Blood Urea Nitrogen 23 mg/dL (9-20); Calcium 8.9 mg/dL (8.4-10.2); Carbon Dioxide 25 mmol/L (22-30); Chloride 103 mmol/L (98-107); Glucose 155 mg/dL (74-99); Non-African American GFR(CKD) >90 (>60 ml/min/1.73 sqM); Sodium 137 mmol/L (137-145); Total Bilirubin 0.2 mg/dL (0.2-1.3); Total Protein 7.4 g/dL (6.3-8.2)
[2021-07-23 01:07] LABS: Partial Thromboplastin Time 25.5 sec (22.0-30.0); Prothrombin Time 10.9 sec (9.0-12.0)
== END 2021-07-23 01:56 | disposition home or self-care (01) ==
LOC: EC 18:57
DX: R31.9 Hematuria, unspecified (principal); Z87.891 Personal history of nicotine dependence
CPT/HCPCS: 36415; 76770; 80053; 81001; 85025; 85610; 85730

== ENCOUNTER → 2021-12-22 | Outpatient (CLI) | payer BC ==
[2021-12-22 18:01] LABS: HCT 45.5 % (39.6-50.0); HGB 15.4 g/dL (13.0-17.0); MCH 33.6 pg (27.0-32.0); MCHC 33.8 g/dL (32.0-37.0); MCV 99.1 fL (80.0-97.0); Mean Platelet Volume 11.2 fL (9.5-12.2); NRBC Per 100 WBC 0 /100 WBCS (0.0-0.0); Platelet Count 263 X 10*3/uL (140-440); RBC 4.59 X 10*6/uL (4.40-5.60); RDW 11.7 % (11.5-14.5); WBC 7.12 X 10*3/uL (4.50-10.00)
[2021-12-22 18:34] LABS: African American GFR (CKD) 125.1 (60.0-200.0); Anion Gap 10.6 mmol/L (10.00-18.00); Blood Urea Nitrogen 14.9 mg/dL (9.0-27.0); Carbon Dioxide 26.4 mmol/L (20.0-27.5); Potassium 4.8 mmol/L (3.5-5.5)
== END | disposition home or self-care (01) ==
LOC: LABPAT 12:08
PROVIDERS: ATTEND Internal Medicine Cardiovascular Disease
DX: Z01.812 Encounter for preprocedural laboratory examination (principal); I42.0 Dilated cardiomyopathy
CPT/HCPCS: 80051; 82565; 84520; 85027

== ENCOUNTER 2021-12-24 08:59 | Day surgery (SDC) | payer BC ==
[~2021-12-24 08:59] MED LIST: ALPRAZolam 0.25 MG TAB PO PRN; ALPRAZolam 0.5 MG TAB PO PRN; ASPIRIN 325 MG TAB PO STA; ATORVASTATIN 80 MG TAB PO STA; HEPARIN SODIUM,PORCINE 10,000 UNIT in SODIUM CHLORIDE 0.9% 1,000 ML IRRIGATION PRN; HEPARIN SODIUM,PORCINE 2,500 UNIT in SODIUM CHLORIDE 0.9% 250 ML IRRIGATION PRN; NITROGLYCERIN SL TABS 0.4 MG TAB SUBLINGUAL PRN; SODIUM CHLORIDE 0.9% 1,000 ML in EMPTY BAG 1 BAG IV SCH
[2021-12-24 09:29] VITALS: RESP 16; TEMP 99
[2021-12-24] MEDS ORDERED: VERAPAMIL 2.5 MG/ML 2 ML AMP ONE (10:10)
[2021-12-24] MEDS ORDERED: HEPARIN SODIUM 1,000 UN/ML (10ML VL) ONE (10:11)
[2021-12-24] MEDS ORDERED: NITROGLYCERIN OINT 1 INCH/GM PACKET TOPICAL ONE ×2 (10:16→10:20)
[2021-12-24] MEDS ORDERED: fentaNYL (PF) 50 MCG/1 ML VIAL IVP ONE (10:19)
[2021-12-24] MEDS ORDERED: METOPROLOL TARTRATE 5 MG/5 ML VIAL IVP ONE ×2 (10:19→10:24)
[2021-12-24] MEDS ORDERED: MIDAZOLAM 2 MG/2 ML VIAL IVP ONE (10:19)
[2021-12-24] MEDS ORDERED: LIDOCAINE 1% INJ 10MG/ML (30 ML VIAL-PF) SQ ONE (10:20)
[2021-12-24] MEDS ORDERED: HEPARIN SODIUM 1,000 UN/ML (10ML VL) IV ONE (10:25)
[2021-12-24] MEDS ORDERED: IOPAMIDOL-370 100ML BTL INJ ONE (10:34)
[2021-12-24] MEDS ORDERED: RX INFO: IV CONTRAST WAS GIVEN 1 EACH MISC MISCELLANE PRN (10:42)
[2021-12-24] MEDS ORDERED: SODIUM CHLORIDE 0.9% 1,000 ML IV SCH (10:45)
--- NOTE | 2021-12-24 12:45 | CC ---
CARDIAC CATHETERIZATION REPORT INDICATIONS: Nonischemic cardiomyopathy. PROCEDURE NOTE: After obtaining informed consent, left heart catheterization and coronary angiogram were performed via the right radial artery using standard Alexandrea catheters. We used a 3.5 right Alexandrea to engage the right coronary artery and the same catheter was used to obtain hemodynamics. The patient tolerated the procedure well without any obvious immediate complications. He received moderate conscious sedation. Total sedation time was 13 minutes. We obtained right radial artery access using Seldinger technique, and a 6-Spanish sheath was placed in the right radial artery and catheters and wires were floated into the ascending aorta under fluoroscopic guidance. The patient received 5 mg of verapamil and 4000 units of heparin per protocol. FINDINGS: 1. Hemodynamics: Left ventricular end-diastolic pressure is 28 to 30 mm. There is no significant gradient across the aortic valve. 2. Left Ventriculogram: Left ventriculogram is not performed. 3. Angiographic Data: a.Right coronary artery: Right coronary artery is a large dominant vessel and is free of significant stenosis. Left main coronary artery is a normal-sized vessel and is free of stenosis. Divides in the left anterior descending coronary artery and circumflex coronary artery. b.LAD and its branches, circumflex coronary artery and its branches are free of significant stenosis. CONCLUSION: 1. Normal coronary arteries. 2. Elevated left ventricular end-diastolic pressure. PLAN: The patient has not been very compliant with his medications. He is both tachycardic and has uncontrolled hypertension. I will increase the dose of his Coreg to 6.25 b.i.d., start the losartan and continue the Lasix and I will refer him to EP for an AICD. MMODL / IJN: [id number] /
[2021-12-24 16:16] VITALS: BP 132/88; PULSE 104
[2021-12-24] MEDS ORDERED: carvediloL 6.25 MG TAB PO SCH (17:30)
[2021-12-25] MEDS ORDERED: LOSARTAN 25 MG TAB PO SCH (09:00)
== END 2021-12-24 15:20 | disposition home or self-care (01) ==
LOC: CATHCVL 08:59
PROVIDERS: ATTEND Internal Medicine Cardiovascular Disease
DX: I42.0 Dilated cardiomyopathy (principal); I11.0 Hypertensive heart disease with heart failure; I50.22 Chronic systolic (congestive) heart failure; F17.210 Nicotine dependence, cigarettes, uncomplicated; Z82.49 Family history of ischemic heart disease and other diseases of the circulatory system; Z79.899 Other long term (current) drug therapy
CPT/HCPCS: 93458; C1769; C1894; J2250; J2001; J1644; Q9967; J3010

== ENCOUNTER 2022-05-12 11:30 | Emergency (ER) | payer BC ==
[2022-05-12 11:46] VITALS: TEMP 98.1
--- NOTE | 2022-05-12 11:58 | ED ---
SOB HPI - General Chief Complaint: Shortness of Breath Stated Complaint: SOB Time Seen by Provider: 05/12/22 11:45 Source: patient Mode of arrival: ambulatory Limitations: no limitations - History of Present Illness Initial Comments: This is a pleasant 36-year-old male that presents to the emergency room with 2 days of worsening shortness of breath and clear foamy productive cough. Does have history of congestive heart failure and taking spironolactone. States was found to have congestive heart failure last June after they believe from complications from Covid. He was put on Entresto, Aspirin and Sprianalactone and directed to follow up with cardiology. He is seeing a doctor at the [facility] to discuss possible defibrillator placement, and his next appointment on the . Over the past 2 days has developed cough and shortness of breath. Denies any chest pain or fevers. MD Complaint: shortness of breath, cough -: days(s) (2) Severity scale (1-10): 0 Known History Of: congestive heart failure Associated Symptoms: cough, sputum production (clear foamy) Treatments Prior to Arrival: diuretics - Related Data Home Oxygen Therapy: No Home Medications Medication Instructions Recorded Confirmed Aspirin EC [Ecotrin Low Dose] 81 mg PO DAILY 05/12/22 05/12/22 Empagliflozin [Jardiance] 10 mg PO DAILY 05/12/22 05/12/22 Sacubitril/Valsartan [Entresto 24 1 tab PO BID 05/12/22 05/12/22 mg-26 mg Tablet] Spironolactone [Aldactone] 25 mg PO DAILY 05/12/22 05/12/22 carvediloL [Coreg] 12.5 mg PO BID 05/12/22 05/12/22 Previous Rx's Medication Instructions Recorded Digoxin [Lanoxin] 125 mcg PO DAILY 60 Days #30 tab 07/18/21 Allergies Allergy/AdvReac Type Severity Reaction Status Date / Time No Known Allergies Allergy Verified 05/12/22 13:00 Review of Systems ROS Statement: Those systems with pertinent positive or pertinent negative responses have been documented in the HPI. ROS Other: All systems not noted in ROS Statement are negative. Past Medical History Past Medical History: Heart Failure Additional Past Medical History / Comment(s): concussion ( while changing a tire-accidently was hit in head with a metal pipe) ,add/adhd,scoliosis."heartburn", shingles 2008, r/o possiblity of heart attack in past. COVID- x2 History of Any Multi-Drug Resistant Organisms: None Reported Past Surgical History: Hernia Repair Additional Past Surgical History / Comment(s): rt inguinal hernia repair, rt hand repair after a drill went thru it. Past Anesthesia/Blood Transfusion Reactions: No Reported Reaction Additional Past Anesthesia/Blood Transfusion Reaction / Comment(s): past "sea sickness" Past Psychological History: ADD/ADHD Smoking Status: Former smoker Past Alcohol Use History: None Reported Past Drug Use History: None Reported - Past Family History Father Family Medical History: COPD, Coronary Artery Disease (CAD), Diabetes Mellitus Mother Family Medical History: Hypertension, Sleep Apnea/CPAP/BIPAP Additional Family Medical History / Comment(s): osteoporosis, fatty liver General Exam Limitations: no limitations General appearance: alert, in no apparent distress Head exam: Present: atraumatic, normocephalic, normal inspection Eye exam: Present: normal appearance. Absent: scleral icterus, conjunctival injection, periorbital swelling, periorbital tenderness ENT exam: Present: mucous membranes moist Neck exam: Present: normal inspection, full ROM. Absent: tenderness, meningismus Respiratory exam: Present: normal lung sounds bilaterally. Absent: respiratory distress, accessory muscle use Cardiovascular Exam: Present: tachycardia GI/Abdominal exam: Present: soft. Absent: tenderness, rigid Extremities exam: Present: full ROM, normal capillary refill. Absent: tenderness, pedal edema Back exam: Present: normal inspection, full ROM. Absent: tenderness, CVA tenderness (R), CVA tenderness (L), rash noted Neurological exam: Present: alert, oriented X3 Psychiatric exam: Present: normal affect, normal mood Skin exam: Present: warm, dry, normal color. Absent: cyanosis, diaphoretic, petechiae, pallor Course Vital Signs 05/12/22 05/12/22 05/12/22 11:42 12:12 13:24 Temperature 98.1 F Pulse Rate 82 105 H 95 Respiratory 24 18 16 Rate Blood Pressure 116/77 111/82 105/92 O2 Sat by Pulse 97 97 100 Oximetry 05/12/22 14:54 Temperature Pulse Rate 99 Respiratory 18 Rate Blood Pressure 115/87 O2 Sat by Pulse 99 Oximetry Medical Decision Making - Medical Decision Making Chest x-ray interpreted by me shows no evidence of infiltrate, trachea midline, cardiac silhouette within normal size. Radiologist's impression no acute process. Transfer. Patient does have an appointment on the at the [facility]. CBC loculates are unremarkable. BNP is 36. Troponin is negative at 0.012. EKG shows sinus tachycardia with ventricular rate of 102, [place] interval 0.158, QRS 0.103, QTC 0.402. No significant change compared to old 07/15/2021. Patient echocardiogram on 07/15/2021 report shows dilated left ventricle with severely dysfunction and moderate mitral regurgitation. Ejection fraction 20- 25%. Patient was told at discharge on 07/18/21 to wear his life vest at all times. He states he no longer wears it and was told to send it back by his electrical accessories i assembler. States his original doctor at [facility] retired and an new doctor is taking over his case. He does have an appointment on the at [facility]. Cath report from Dr Schilling 12/25/21 shows a plan for the patient to take the medications as prescribed as he has been noncompliant. Normal Coronary Arteries. Persistently tachycardic with uncontrolled hypertension. His Coreg was increased to 6.25 twice a day. Losartan was started and Lasix prescribed. He was referred to [facility] for AICD. Case discussed with Dr. Jones and patient instructed to keep his appointment as scheduled with the [facility] on the . Contact his doctor tomorrow morning to advise him of his symptoms and ER visit today. Return if any other concerning symptoms. Continue taking previously prescribed medications. Patient is agreeable to this plan of care. Patient is hemodynamically stable with no complaints of chest pain. Was pt. sent in by a medical professional or institution (, PA, QUALITY ASSURANCE TEST PROGRAM MANAGER, urgent care, hospital, or usp...) When possible be specific @ -No Did you speak to anyone other than the patient for history (EMS, parent, family, police, friend...)? What history was obtained from this source @ -No Did you review nursing and triage notes (agree or disagree)? Why? @ -I reviewed and agree with nursing and triage notes Were old charts reviewed (outside hosp., previous admission, EMS record, old EKG, old radiological studies, urgent care reports/EKG's, usp records)? Report findings @ -yes previous cardiology records, EKG Differential Diagnosis (chest pain, altered mental status, abdominal pain women, abdominal pain men, vaginal bleeding, weakness, fever, dyspnea, syncope, headache, dizziness, GI bleed, back pain, seizure, CVA, palpatations, mental health, musculoskeletal)? @ -Differential Dyspnea: Coronary syndrome, arrhythmia, tamponade, asthma, COPD, pulmonary embolism, pneumonia, pneumothorax, pulmonary effusion, anaphylaxis, diabetic ketoacidosis, flailed chest, pulmonary contusion, diaphragmatic rupture, anemia, neuromuscular, this is not meant to be an all-inclusive list. EKG interpreted by me (3pts min.). @ -As above X-rays interpreted by me (1pt min.). @ -Yes as above CT interpreted by me (1pt min.). @ -None done U/S interpreted by me (1pt. min.). @ -None done What testing was considered but not performed or refused? (CT, X-rays, U/S, labs)? Why? @ -None What meds were considered but not given or refused? Why? @ -None Did you discuss the management of the patient with other professionals (professionals i.e. , PA, QUALITY ASSURANCE TEST PROGRAM MANAGER, lab, RT, psych nurse, social services designee, lawyer criminal, teacher, fare enforcement officer, complex case manager)? Give summary @ -No Was smoking cessation discussed for >3mins.? @ -No Was critical care preformed (if so, how long)? @ -No Were there social determinants of health that impacted care today? How? (Homelessness, low income, unemployed, alcoholism, drug addiction, transportation, low edu. Level, literacy, decrease access to med. care, half-way, rehab)? @ -No Was there de-escalation of care discussed even if they declined (Discuss DNR or withdrawal of care, Hospice)? DNR status @ -No What co-morbidities impacted this encounter? (DM, HTN, Smoking, COPD, CAD, Cancer, CVA, ARF, Chemo, Hep., AIDS, mental health diagnosis, sleep apnea, morbid obesity)? @ -History of congestive heart failure, cardiomyopathy Was patient admitted / discharged? Hospital course, mention meds given and route, prescriptions, significant lab abnormalities, going to OR and other pertinent info. @ -Discharged Undiagnosed new problem with uncertain prognosis? @ -No Drug Therapy requiring intensive monitoring for toxicity (Heparin, Nitro, Insulin, Cardizem)? @ -No Were any procedures done? @ -No Diagnosis/symptom? @ -Shortness of breath Acute, or Chronic, or Acute on Chronic? @ -Acute on chronic Uncomplicated (without systemic symptoms) or Complicated (systemic symptoms)? @ -Uncomplicated Side effects of treatment? @ -No Exacerbation, Progression, or Severe Exacerbation? @ -No Poses a threat to life or bodily function? How? (Chest pain, [place], [place], pneumonia, PE, COPD, DKA, ARF, appy, cholecystitis, CVA, Diverticulitis, Homicidal, Suicidal, threat to staff... and all critical care pts) @ -No - Lab Data Result diagrams: 05/12/22 12:03 05/12/22 13:00 Lab Results 05/12/22 05/12/22 05/12/22 Range/Units 12:03 12:03 12:20 WBC 5.7 (3.8-10.6) k/uL RBC 5.00 (4.30-5.90) m/uL Hgb 16.8 (13.0-17.5) gm/dL Hct 48.3 (39.0-53.0) % MCV 96.7 (80.0-100.0) fL MCH 33.5 (25.0-35.0) pg MCHC 34.7 (31.0-37.0) g/dL RDW 11.9 (11.5-15.5) % Plt Count 226 (150-450) k/uL MPV 8.4 Neutrophils % 62 % Lymphocytes % 17 % Monocytes % 14 % Eosinophils % 1 % Basophils % 1 % Neutrophils # 3.5 (1.3-7.7) k/uL Lymphocytes # 1.0 (1.0-4.8) k/uL Monocytes # 0.8 (0-1.0) k/uL Eosinophils # 0.1 (0-0.7) k/uL Basophils # 0.1 (0-0.2) k/uL PT 10.1 (9.0-12.0) sec INR 0.9 (<1.2) APTT 25.8 (22.0-30.0) sec Sodium (137-145) mmol/L Potassium (3.5-5.1) mmol/L Chloride (98-107) mmol/L Carbon Dioxide (22-30) mmol/L Anion Gap mmol/L BUN (9-20) mg/dL Creatinine (0.66-1.25) mg/dL Est GFR (CKD-EPI)AfAm (>60 ml/min/1.73 sqM) Est GFR (CKD-EPI)NonAf (>60 ml/min/1.73 sqM) Glucose (74-99) mg/dL Calcium (8.4-10.2) mg/dL Magnesium (1.6-2.3) mg/dL Total Bilirubin (0.2-1.3) mg/dL AST (17-59) U/L ALT (4-49) U/L Alkaline Phosphatase (38-126) U/L Troponin I (0.000-0.034) ng/mL NT-Pro-B Natriuret Pep 36 pg/mL Total Protein (6.3-8.2) g/dL Albumin (3.5-5.0) g/dL 05/12/22 05/12/22 Range/Units 13:00 13:00 WBC (3.8-10.6) k/uL RBC (4.30-5.90) m/uL Hgb (13.0-17.5) gm/dL Hct (39.0-53.0) % MCV (80.0-100.0) fL MCH (25.0-35.0) pg MCHC (31.0-37.0) g/dL RDW (11.5-15.5) % Plt Count (150-450) k/uL MPV Neutrophils % % Lymphocytes % % Monocytes % % Eosinophils % % Basophils % % Neutrophils # (1.3-7.7) k/uL Lymphocytes # (1.0-4.8) k/uL Monocytes # (0-1.0) k/uL Eosinophils # (0-0.7) k/uL Basophils # (0-0.2) k/uL PT (9.0-12.0) sec INR (<1.2) APTT (22.0-30.0) sec Sodium 136 L (137-145) mmol/L Potassium 4.3 (3.5-5.1) mmol/L Chloride 102 (98-107) mmol/L Carbon Dioxide 24 (22-30) mmol/L Anion Gap 10 mmol/L BUN 20 (9-20) mg/dL Creatinine 0.73 (0.66-1.25) mg/dL Est GFR (CKD-EPI)AfAm >90 (>60 ml/min/1.73 sqM) Est GFR (CKD-EPI)NonAf >90 (>60 ml/min/1.73 sqM) Glucose 101 H (74-99) mg/dL Calcium 9.3 (8.4-10.2) mg/dL Magnesium 2.1 (1.6-2.3) mg/dL Total Bilirubin 1.0 (0.2-1.3) mg/dL AST 45 (17-59) U/L ALT 45 (4-49) U/L Alkaline Phosphatase 78 (38-126) U/L Troponin I <0.012 (0.000-0.034) ng/mL NT-Pro-B Natriuret Pep pg/mL Total Protein 8.6 H (6.3-8.2) g/dL Albumin 4.9 (3.5-5.0) g/dL - EKG Data Rate: tachycardia (Sinus tachycardia with a ventricular rate of 102, [place] interval 0.158, QRS 0.103, QTC 0.402, left axis deviation; old EKG 07/13/21) Disposition Clinical Impression: Shortness of breath Disposition: HOME SELF-CARE Condition: Good Instructions (If sedation given, give patient instructions): Shortness of Breath (ED) Additional Instructions: Continue your previously prescribed medications. Follow up with your cardio logist at [facility] tomorrow. Return to the emergency room with any new or concerning symptoms. Is patient prescribed a controlled substance at d/c from ED?: No Referrals: None,Stated [Primary Care Provider] - 1-2 days Time of Disposition: 14:19
--- NOTE | 2022-05-12 12:23 | XR ---
EXAMINATION TYPE: XR chest 2V DATE OF EXAM: 05/12/2022 COMPARISON: 07/15/2021 TECHNIQUE: PA and lateral views submitted. HISTORY: Shortness of breath FINDINGS: The lungs are clear and there is no pneumothorax, pleural effusion, or focal pneumonia. Heart size normal and no overt failure. Osseous structures intact. IMPRESSION: 1. No acute process.
[2022-05-12 12:52] LABS: INR 0.9 (<1.2); Partial Thromboplastin Time 25.8 sec (22.0-30.0); Prothrombin Time 10.1 sec (9.0-12.0)
[2022-05-12 13:02] LABS: Basophils # (A) 0.1 k/uL (0-0.2); Basophils % (A) 1 %; Eosinophils # (A) 0.1 k/uL (0-0.7); Eosinophils % (A) 1 %; HCT 48.3 % (39.0-53.0); HGB 16.8 gm/dL (13.0-17.5); Lymphocytes % (A) 17 %; MCH 33.5 pg (25.0-35.0); MCHC 34.7 g/dL (31.0-37.0); MCV 96.7 fL (80.0-100.0); Mean Platelet Volume 8.4; Monocytes # (A) 0.8 k/uL (0-1.0); Monocytes % (A) 14 %; Neutrophils # (A) 3.5 k/uL (1.3-7.7); Neutrophils % (A) 62 %; Platelet Count 226 k/uL (150-450); RDW 11.9 % (11.5-15.5); WBC 5.7 k/uL (3.8-10.6)
[2022-05-12 13:36] LABS: ALT 45 U/L (4-49); AST 45 U/L (17-59); African American GFR (CKD) >90 (>60 ml/min/1.73 sqM); Albumin 4.9 g/dL (3.5-5.0); Alkaline Phosphatase 78 U/L (38-126); Anion Gap 10 mmol/L; Blood Urea Nitrogen 20 mg/dL (9-20); Calcium 9.3 mg/dL (8.4-10.2); Carbon Dioxide 24 mmol/L (22-30); Chloride 102 mmol/L (98-107); Glucose 101 mg/dL (74-99); Magnesium 2.1 mg/dL (1.6-2.3); Non-African American GFR(CKD) >90 (>60 ml/min/1.73 sqM); Potassium 4.3 mmol/L (3.5-5.1); Sodium 136 mmol/L (137-145); Total Protein 8.6 g/dL (6.3-8.2)
[2022-05-12 14:58] VITALS: BP 115/87; PULSE 99; RESP 18
== END 2022-05-12 14:56 | disposition home or self-care (01) ==
LOC: EC 11:30
DX: R06.02 Shortness of breath (principal); I50.9 Heart failure, unspecified; Z87.891 Personal history of nicotine dependence; Z79.899 Other long term (current) drug therapy; Z86.16 Personal history of COVID-19
CPT/HCPCS: 36415; 71046; 80053; 83735; 83880; 84484; 85025; 85610; 85730; 93005; 99285